=== PATIENT | male | born 1980 | race Caucasian/White ===

== ENCOUNTER 2016-09-13 22:59 | Emergency (ER) | payer SELFPAY ==
[2016-09-13 23:45] LABS: HEMATOCRIT 29.5 % (39.0-49.0); HEMOGLOBIN 11.2 gm/dL (13.2-17.3); MEAN PLATELET VOLUME 7.2 fl; PLATELET COUNT 147 Th/cmm (150-400); RED BLOOD COUNT 2.95 Mil/cmm (4.30-5.70); RED CELL DISTRIBUTION WIDTH 14.7 % (11.5-20.0)
--- NOTE | 2016-09-13 23:51 | ED Physician Chart ---
Chief Complaint/HPI - Patient Information Date Seen:: 09/13/16 Time Seen:: 23:26 Chief Complaint:: left sided body pain History of Present Illness:: THIS IS A 36 YO MALE BIB EMS STATING THAT HE HAD A FALL TONIGHT WHILE WALKING WITH [employer]ES. HE DENIES LOC AND DENIES USING DRUG OR ALCOHOL. HE IS ALSO CONCERN ABOUT THE MULTIPLE ABRASIONS OVER THE KNEES AND LOWER LEGS. HE STATES THAT HE IS HOMELESS. Vitals:: Vital Signs - 8 hr 09/13/16 23:05 Temp 98.1 F HR 95 RR 19 BP 109/75 O2 Sat % 99 Historian:: Patient, EMS Review:: Nurse's Note Reviewed Review of Systems - Review of Systems General/Constitutional: No fever, No chills, No weight loss, No weakness, No diaphoresis, No edema, No loss of appetite Skin: Skin lesions, No rash, No bruising Head: No headache, No light-headedness Eyes: No loss of vision, No pain, No diplopia ENT: No earache, No nasal drainage, No sore throat, No tinnitus Neck: No neck pain, No swelling, No thyromegaly, No stiffness, No mass noted Cardio Vascular: No chest pain, No palpitations, No PND, No orthopnea, No edema Pulmonary: No SOB, No cough, No sputum, No wheezing GI: No nausea, No vomiting, No diarrhea, No pain, No melena, No hematochezia, No constipation, No hematemesis G/U: No dysuria, No frequency, No hematuria Musculoskeletal: No bone or joint pain, No back pain, No muscle pain Endocrine: No polyuria, No polydipsia Psychiatric: No prior psych history, No depression, No anxiety, No suicidal ideation Hematopoietic: No bruising, No lymphadenopathy Allergic/Immuno: No urticaria, No angioedema Neurological: No syncope, No focal symptoms, No weakness, No paresthesia, No headache, No seizure, No dizziness, No confusion, No vertigo Past Medical History - Past Medical History Obtainable: Yes Past Medical History: HTN Family History: None Social History: Smoker, Alcohol, Illicit Drug Use Family Medical History - Family Member Mother History Unknown: Yes Physical Exam - Physical Examination General/Constitutional: Awake, Well-developed, well-nourished, Alert, No distress, GCS 15, Non-toxic appearing, Ambulatory Other Gen/Cons comments:: LOOKS LETHARGIC Head: Atraumatic Eyes: Lids, conjuctiva normal, PERRL, EOMI Skin: Nl inspection, No rash, No skin lesions, No ecchymosis, Well hydrated, No lymphadenopathy ENMT: External ears, nose nl, Nasal exam nl, Lips, teeth, gums nl Neck: Nontender, Full ROM w/o pain, No JVD, No nuchal rigidity, No bruit, No mass, No stridor Respiratory: Nl effort/Exclusion, Clear to Auscultation, No Wheeze/Rhonchi/Rales Cardio Vascular: RRR, No murmur, gallop, rubs, NL S1 S2 GI: No tenderness/rebounding/guarding, No organomegaly, No hernia, Normal BS's, Nondistended, No mass/bruits, No McBurney tenderness : No CVA tenderness Extremities: No tenderness or effusion, Full ROM, normal strength in all extremities, No edema, Normal digits & nails Neuro/Psych: Alert/oriented, DTR's symmetric, Normal sensory exam, Normal motor strength, Judgement/insight normal, Mood normal, Normal gait, No focal deficits Misc: normal gait, Normal back, No paraspinal tenderness Labs/Radiology/EKG Results - Lab Results Results: Laboratory Results - last 24 hr 09/13/16 09/13/16 09/13/16 23:36 23:36 23:36 WBC 5.0 RBC 2.95 L Hgb 11.2 L Hct 29.5 L MCV 100.0 H MCH 38.0 H MCHC Differential 38.0 H RDW 14.7 Plt Count 147 L MPV 7.2 Neutrophils (Manual) 56 Lymphocytes 42 Monocytes 2 Platelet Estimate ADEQUATE Platelet Morphology NORMAL Polychromasia 1+ Anisocytosis 1+ RBC Morph Micro Appear ABNORMAL Sodium 129 L Potassium 3.2 L Chloride 97 L Carbon Dioxide 26.4 Anion Gap 8.8 BUN 16 Creatinine 1.2 Est GFR ( Amer) > 60.0 Est GFR (Non-Af Amer) > 60.0 BUN/Creatinine Ratio 13.3 Glucose 109 H Calcium 8.9 Total Bilirubin 3.1 H AST 130 H ALT 69 H Alkaline Phosphatase 292 H Troponin I 0.01 Total Protein 6.3 Albumin 3.4 L Globulin 2.9 Albumin/Globulin Ratio 1.2 Urine Source Urine Color Urine Clarity Urine pH Ur Specific [place] Urine Protein Urine Glucose (UA) Urine Ketones Urine Blood Urine Nitrate Urine Bilirubin Urine Urobilinogen Ur Leukocyte Esterase Urine RBC Urine WBC Ur Epithelial Cells Urine Bacteria Urine Opiates Screen Urine Methadone Screen Ur Barbiturates Screen Ur Tricyclics Screen Ur Phencyclidine Scrn Amphetamines Screen U Methamphetamines Scrn U Benzodiazepines Scrn U Cocaine Metab Screen U Cannabinoids Screen Ethyl Alcohol 09/13/16 09/13/16 09/13/16 23:36 23:45 23:45 WBC RBC Hgb Hct MCV MCH MCHC Differential RDW Plt Count MPV Neutrophils (Manual) Lymphocytes Monocytes Platelet Estimate Platelet Morphology Polychromasia Anisocytosis RBC Morph Micro Appear Sodium Potassium Chloride Carbon Dioxide Anion Gap BUN Creatinine Est GFR ( Amer) Est GFR (Non-Af Amer) BUN/Creatinine Ratio Glucose Calcium Total Bilirubin AST ALT Alkaline Phosphatase Troponin I Total Protein Albumin Globulin Albumin/Globulin Ratio Urine Source CLEAN C Urine Color YELLOW Urine Clarity CLEAR Urine pH 6.0 Ur Specific [place] 1.015 Urine Protein NEGATIVE Urine Glucose (UA) NEGATIVE Urine Ketones NEGATIVE Urine Blood SMALL H Urine Nitrate NEGATIVE Urine Bilirubin NEGATIVE Urine Urobilinogen 1.0 Ur Leukocyte Esterase NEGATIVE Urine RBC 2-5 H Urine WBC NONE SEEN Ur Epithelial Cells NONE SEEN Urine Bacteria NONE SEEN Urine Opiates Screen POSITIVE H Urine Methadone Screen NEGATIVE Ur Barbiturates Screen NEGATIVE Ur Tricyclics Screen NEGATIVE Ur Phencyclidine Scrn NEGATIVE Amphetamines Screen NEGATIVE U Methamphetamines Scrn NEGATIVE U Benzodiazepines Scrn POSITIVE H U Cocaine Metab Screen NEGATIVE U Cannabinoids Screen NEGATIVE Ethyl Alcohol 257 H ED Septic Shock - . Is Septic Shock (SBP<90, OR Lactate>4 mmol\L) present?: No - <6hrs of presentation: Vital Signs: Vital Signs - 8 hr 09/13/16 23:05 Temp 98.1 F HR 95 RR 19 BP 109/75 O2 Sat % 99 Reassessment (Disposition) - Reassessment Reassessment Condition:: Improved - Diagnosis Diagnosis:: CONTUSION OF THE LEFT SIDE OF THE BODY DRUG ABUSE ALCOHOL ABUSE - Aftercare/Follow up Instructions Aftercare/Follow-Up Instructions:: Counseled pt regarding lab results/diagnosis & need follow up, Refer to Discharge Instructions, Counseled pt & family regarding lab results/diagnosis & need follow up - Patient Disposition Discharge/Transfer:: Home Condition at Disposition:: Improved ED Discharge Plan - Patient Disposition Admit/Discharge/Transfer: PT DISCHARGED HOME Condition at Disposition: Improved Instructions: Alcohol Intoxication, [id number], Contusion, [id number], Substance Abuse-Brief Additional Instructions: FOLLOW UP WITH YOUR REGULAR DOCTOR OR AT YOUR LOCAL MEDICAL CLINIC IF NOT FEELING BETTER. STOP DRINKING ALCOHOL.
[2016-09-14] LABS: ANION GAP 8.8 (7.0-16.0); BUN - UREA NITROGEN 16 mg/dL (7-25); BUN/CREATININE RATIO 13.3; CALCIUM SERUM 8.9 mg/dL (8.6-10.3); CARBON DIOXIDE 26.4 mEq/L (21.0-31.0); CHLORIDE 97 mEq/L (98-107); CREATININE - SERUM 1.2 mg/dL (0.7-1.3); GLUCOSE 109 mg/dL (70-105); POTASSIUM SERUM 3.2 mEq/L (3.5-5.1); SODIUM SERUM 129 mEq/L (136-145)
[2016-09-14 00:01] LABS: ALB/GLOB RATIO 1.2 (1.0-1.8); ALKALINE PHOSPHATASE 292 U/L (34-104); BILIRUBIN,TOTAL 3.1 mg/dL (0.3-1.0)
[2016-09-14 00:18] LABS: URINE BILIRUBIN NEGATIVE (NEGATIVE); URINE COLOR YELLOW; URINE GLUCOSE (UA) NEGATIVE (NEGATIVE); URINE KETONE NEGATIVE (NEGATIVE)
[2016-09-14 00:19] LABS: URINE BACTERIA NONE SEEN /hpf (NONE SEEN); URINE BLOOD SMALL (NEGATIVE); URINE EPITHELIAL CELLS NONE SEEN /lpf (FEW); URINE PROTEIN NEGATIVE (NEGATIVE); URINE WBC NONE SEEN /hpf (0-5)
[2016-09-14 00:27] LABS: AMPHETAMINE URINE NEGATIVE (NEGATIVE); BARBITURATES URINE NEGATIVE (NEGATIVE); METHADONE URINE NEGATIVE (NEGATIVE)
[2016-09-14 00:40] LABS: ANISOCYTOSIS 1+; NEUTROPHILS 56 % (40-80); PLATELET ESTIMATE ADEQUATE (NORMAL); PLATELET MORPHOLOGY NORMAL (NORMAL); POLYCHROMASIA 1+; TOTAL CELLS COUNTED 100
[2016-09-14 01:00] LABS: SGOT 130 U/L (13-39)
[2016-09-14 01:01] LABS: SGPT/ALT 69 U/L (7-52)
== END 2016-09-14 07:15 | disposition home or self-care (01) ==
LOC: ER 22:59 → EDBD 22:59 → ER 09-14 07:15
DX: T14.8 Other injury of unspecified body region (principal); I10 Essential (primary) hypertension; F17.200 Nicotine dependence, unspecified, uncomplicated; F10.10 Alcohol abuse, uncomplicated; F19.10 Other psychoactive substance abuse, uncomplicated; Z59.0 Homelessness; X58.XXXA Exposure to other specified factors, initial encounter; Y93.89 Activity, other specified; Y92.89 Other specified places as the place of occurrence of the external cause; Y99.8 Other external cause status
CPT/HCPCS: 99284; 96372 ×2; 84484; 36415; 80300; 85007; 85027; 85610; 81001; 80320; 80053; 87040 ×2; J1885; J2060; 81003-TC; 85025-TC; Z7502

== ENCOUNTER 2017-11-30 23:16 | Emergency (ER) | payer MEDICAID ==
[2017-11-30] MEDS ORDERED: Sodium Chloride 0.9% 1,000 ML IV ONE (23:33)
--- NOTE | 2017-11-30 23:39 | ED Physician Chart ---
ED Chief Complaint/HPI - Patient Information Date Seen:: 11/30/17 Time Seen:: 23:30 Chief Complaint:: abdominal pain History of Present Illness:: Patient has had upper abdominal pain for 2 years radiating to his back and distally down the anterior thighs to the knees. Patient has vomited many times and also has soft stools recently. Patient requested Dilaudid for his abdominal pain and and when I told him no he requested morphine. I told him I would not give him any morphine either before lab tests returned. Patient had a bandage on his right second toe and from what little I could see it looked like his toe was infected. I tried to remove the bandage gently but he accused me of causing him a lot of pain so I desisted in my attempt to remove the bandage. Allergies:: Allergies Allergy/AdvReac Type Severity Reaction Status Date / Time No Known Allergies Allergy Verified 09/13/16 23:58 Vitals:: Vital Signs - 8 hr 11/30/17 23:26 Temp 98.4 F HR 105 RR 19 BP 117/71 O2 Sat % 96 Historian:: Patient, EMS Review:: Nurse's Note Reviewed ED Review of Systems - Review of Systems General/Constitutional: No fever, No chills, No weight loss, No weakness, No diaphoresis, No edema, No loss of appetite Skin: No skin lesions, No rash, No bruising Head: No headache, No light-headedness Eyes: No loss of vision, No pain, No diplopia ENT: No earache, No nasal drainage, No sore throat, No tinnitus Neck: No neck pain, No swelling, No thyromegaly, No stiffness, No mass noted Cardio Vascular: No chest pain, No palpitations, No PND, No orthopnea, No edema Pulmonary: No SOB, No cough, No sputum, No wheezing GI: Nausea, Vomiting, Diarrhea, Pain, No melena, No hematochezia, No constipation, No hematemesis G/U: No dysuria, No frequency, No hematuria Musculoskeletal: No bone or joint pain, No back pain, No muscle pain Endocrine: No polyuria, No polydipsia Psychiatric: No prior psych history, No depression, No anxiety, No suicidal ideation Hematopoietic: No bruising, No lymphadenopathy Allergic/Immuno: No urticaria, No angioedema Neurological: No syncope, No focal symptoms, No weakness, No paresthesia, No headache, No seizure, No dizziness, No confusion, No vertigo ED Past Medical History - Past Medical History Past Medical History: Other (chronic back pain and pancreatitis) Family History: None Social History: Smoker, Alcohol (patient smokes one half package of cigarettes a day and drinks 1/2-1 pint of vodka per day) Surgical History: Cholecystectomy, Hernia, other (for back pain) Psychiatricy History: None Medication: Reviewed Family Medical History - Family Member Mother History Unknown: Yes ED Physical Exam - Physical Examination General/Constitutional: Awake, Well-developed, well-nourished, Alert, No distress, GCS 15, Non-toxic appearing, Ambulatory Head: Atraumatic Eyes: Lids, conjuctiva normal, PERRL, EOMI Skin: Nl inspection, No rash, No skin lesions, No ecchymosis, Well hydrated, No lymphadenopathy ENMT: External ears, nose nl, Nasal exam nl, Lips, teeth, gums nl Neck: Nontender, Full ROM w/o pain, No JVD, No nuchal rigidity, No bruit, No mass, No stridor Respiratory: Nl effort/Exclusion, Clear to Auscultation, No Wheeze/Rhonchi/Rales Cardio Vascular: RRR, No murmur, gallop, rubs, NL S1 S2 GI: No tenderness/rebounding/guarding, No organomegaly, No hernia, Normal BS's, Nondistended, No mass/bruits, No McBurney tenderness : No CVA tenderness Other Extremities comments:: See history for possible infection of right second toe Neuro/Psych: Alert/oriented, Judgement/insight normal, No focal deficits Misc: Normal back, No paraspinal tenderness ED Assessment - Assessment General Assessment: Patient eloped from the emergency department before lab tests could be drawn or he could receive IV fluids and Zofran IV for nausea. ED Septic Shock - . Is Septic Shock (SBP<90, OR Lactate>4 mmol\L) present?: No - <6hrs of presentation: Vital Signs: Vital Signs - 8 hr 11/30/17 23:26 Temp 98.4 F HR 105 RR 19 BP 117/71 O2 Sat % 96 ED Reassessment (Disposition) - Reassessment Reassessment Condition:: Unchanged - Diagnosis Diagnosis:: Abdominal pain; alcohol abuse; nicotine use - Patient Disposition Discharge/Transfer:: Elope/AWOL Condition at Disposition:: Stable, Unchanged
== END 2017-11-30 23:35 | disposition left against medical advice (07) ==
LOC: ER 23:16
DX: F10.10 Alcohol abuse, uncomplicated (principal); F17.210 Nicotine dependence, cigarettes, uncomplicated; Z90.49 Acquired absence of other specified parts of digestive tract
CPT/HCPCS: Z7502

== ENCOUNTER 2017-12-09 11:16 | Inpatient (IN) | payer MEDICAID ==
[2017-12-09] MEDS ORDERED: Sodium Chloride 0.9% 1,000 ML IV ONE (11:33)
--- NOTE | 2017-12-09 11:38 | ED Physician Chart ---
ED Chief Complaint/HPI - Patient Information Date Seen:: 12/09/17 Time Seen:: 11:25 Chief Complaint:: Abdominal Pain History of Present Illness:: onset x 12 hours of intermittent, diffuse, crampy Abdominal Pain, N/V/D, 10; pt denies trauma, H/As, S/T, neck pain, cough, C/P, SOB, A/C, fever, chills, bleeding, or urinary s/s Allergies:: Allergies Allergy/AdvReac Type Severity Reaction Status Date / Time No Known Allergies Allergy Verified 09/13/16 23:58 Vitals:: Vital Signs - 8 hr 12/09/17 11:25 Temp 98.1 F HR 103 RR 16 BP 108/69 O2 Sat % 95 Historian:: Patient Review:: Nurse's Note Reviewed ED Review of Systems - Review of Systems General/Constitutional: No fever, No chills, No weight loss, No weakness, No diaphoresis, No edema, No loss of appetite Skin: No skin lesions, No rash, No bruising Head: No headache, No light-headedness Eyes: No loss of vision, No pain, No diplopia ENT: No earache, No nasal drainage, No sore throat, No tinnitus Neck: No neck pain, No swelling, No thyromegaly, No stiffness, No mass noted Cardio Vascular: No chest pain, No palpitations, No PND, No orthopnea, No edema Pulmonary: No SOB, No cough, No sputum, No wheezing GI: Nausea, Vomiting, Diarrhea, Pain, No melena, No hematochezia, No constipation, No hematemesis G/U: No dysuria, No frequency, No hematuria, No nacturia Musculoskeletal: No bone or joint pain, No back pain, No muscle pain Endocrine: No polyuria, No polydipsia Psychiatric: No prior psych history, No depression, No anxiety, No suicidal ideation, No homicidal ideation, No auditory hallucination, No visual hallucination Hematopoietic: No bruising, No lymphadenopathy Allergic/Immuno: No urticaria, No angioedema Neurological: No syncope, No focal symptoms, No weakness, No paresthesia, No headache, No seizure, No dizziness, No confusion, No vertigo ED Past Medical History - Past Medical History Obtainable: Yes Past Medical History: No significant medical hx Family History: HTN Social History: Smoker, Alcohol, No Drug Use, Single Surgical History: Cholecystectomy Psychiatricy History: None Medication: Reviewed Family Medical History - Family Member Mother History Unknown: Yes ED Physical Exam - Physical Examination General/Constitutional: Awake, Well-developed, well-nourished, Alert, No distress, GCS 15, Non-toxic appearing, Ambulatory Head: Atraumatic Eyes: Lids, conjuctiva normal, PERRL, EOMI Skin: Nl inspection, No rash, No skin lesions, No ecchymosis, Well hydrated, No lymphadenopathy ENMT: External ears, nose nl, TM canals nl, Nasal exam nl, Lips, teeth, gums nl , Oropharynx nl, Tonsils nl Neck: Nontender, Full ROM w/o pain, No JVD, No nuchal rigidity, No bruit, No mass, No stridor Respiratory: Nl effort/Exclusion, Clear to Auscultation, No Wheeze/Rhonchi/Rales Cardio Vascular: RRR, No murmur, gallop, rubs, NL S1 S2, Carotid/Femoral/Distal pulses equal bilaterally GI: No tenderness/rebounding/guarding, No organomegaly, No hernia, Normal BS's, Nondistended, No mass/bruits, No McBurney tenderness : No CVA tenderness Extremities: No tenderness or effusion, Full ROM, normal strength in all extremities, No edema, Normal digits & nails Neuro/Psych: Alert/oriented, DTR's symmetric, Normal sensory exam, Normal motor strength, Judgement/insight normal, Mood normal, Normal gait, No focal deficits Misc: Normal back, No paraspinal tenderness ED Labs/Radiology/EKG Results - Lab Results Comments:: ETOH: 278; WBC: 4.3; Glucose: 175; LFTs: Elevated - Radiology Results Comments:: NAD - EKG Interpretations EKG Time:: 11:55 Rate & Rhythm: 97; NSR Comments:: non-specific st-t changes ED Septic Shock - . Is Septic Shock (SBP<90, OR Lactate>4 mmol\L) present?: No - <6hrs of presentation: Vital Signs: Vital Signs - 8 hr 12/09/17 11:25 Temp 98.1 F HR 103 RR 16 BP 108/69 O2 Sat % 95 ED Reassessment (Disposition) - Reassessment Reassessment Condition:: Improved - Diagnosis Diagnosis:: Dx: Abominal Pain, N/V/D; AGE; Alcohol Intoxication; Gastroenteritis; Hyperglycemia; Leukopenia; Elevated LFTs - Aftercare/Follow up Instructions Aftercare/Follow-Up Instructions:: Counseled pt regarding lab results/diagnosis & need follow up, Counseled pt & family regarding lab results/diagnosis & need follow up - Patient Disposition Discharge/Transfer:: Acute Care w/in this hosp Accepting Physician:: Dr. Richter Time Called:: 1300 Time Responded:: 13:00 Admitted to:: Med/Surg Spoke to:: Dr. Richter Admitting Medical Physician:: Dr. Richter Condition at Disposition:: Stable, Improved
[2017-12-09 12:07] LABS: % EOSINOPHILS 2.8 % (0.0-5.0); % LYMPHOCYTES 53.8 % (20.0-50.0); % NEUTROPHILS 33.4 % (40.0-80.0); BASOPHILE ABSOLUTE 0.1 Th/cumm (0-0.2); EOSINOPHILE ABSOLUTE 0.1 Th/cmm (0.1-0.4); HEMATOCRIT 38.6 % (41.0-60); HEMOGLOBIN 13.2 gm/dL (12-16); LYMPHOCYTE ABSOLUTE 2.4 Th/cmm (1.5-3.0); MEAN CELL VOLUME 87.8 fl (80-99); MEAN CORPUSCULAR HGB CONC 34.2 pg (28.0-36.0); MEAN PLATELET VOLUME 7.1 fl; MONOCYTE ABSOLUTE 0.3 Th/cmm (0.3-1.0); NEUTROPHILE ABSOLUTE 1.4 Th/cmm (1.8-8.0); PLATELET COUNT 266 Th/cmm (150-400); RED BLOOD COUNT 4.39 Mil/cmm (4.30-5.70); RED CELL DISTRIBUTION WIDTH 17.9 % (11.5-20.0); WHITE BLOOD COUNT 4.3 Th/cmm (4.8-10.8)
[2017-12-09 12:09] LABS: INR 0.94 (0.5-1.4); PROTHROMBIN TIME (TEST) 9.8 SECONDS (9.5-11.5)
[2017-12-09 12:13] LABS: ALB/GLOB RATIO 1.3 (1.0-1.8); ALBUMIN 3.9 gm/dL (4.2-5.5); ALKALINE PHOSPHATASE 160 U/L (34-104); ANION GAP 15.5 (7.0-16.0); BILIRUBIN,TOTAL 0.3 mg/dL (0.3-1.0); BUN - UREA NITROGEN 9 mg/dL (7-25); CALCIUM SERUM 8.7 mg/dL (8.6-10.3); CARBON DIOXIDE 24.8 mEq/L (21.0-31.0); CHLORIDE 102 mEq/L (98-107); CHOLESTEROL 152 mg/dL (<200); CREATININE - SERUM 0.7 mg/dL (0.7-1.3); CREATININE KINASE 291 U/L (30-223); GFR AFRICAN-AMERICAN > 60.0 ml/min (>90); GFR NON AFRICAN-AMERICAN > 60.0 ml/min; GLUCOSE 175 mg/dL (70-105); HDL -HIGH DENSITY LIPOPROTEIN 47 mg/dL (23-92); POTASSIUM SERUM 4.3 mEq/L (3.5-5.1); SGOT 73 U/L (13-39); SGPT/ALT 30 U/L (7-52); SODIUM SERUM 138 mEq/L (136-145); TRIGLYCERIDES 229 mg/dL (<150)
[2017-12-09 12:14] LABS: AMYLASE SERUM 48 U/L (29-103); LIPASE 24 U/L (11-82)
[2017-12-09] MEDS ORDERED: Multivitamin Inj 10 ML, Thiamine HCL 100 MG, Magnesium Sulfate 2 GM, Folic Acid 1 MG in... IV ONE (14:00)
--- NOTE | 2017-12-09 15:01 | Diagnostic Imaging Report ---
CT scan abdomen and pelvis without intravenous contrast HISTORY: Pain Total DLP equals 405 CTDI equals 7.4 Axial sections were obtained from the xiphoid process down to the pubic symphysis. Exam is compared with prior study November 13, 2017. The liver is enlarged. There is a slight decrease in overall hepatic parenchymal density suggesting fatty infiltration. The finding should be correlated with liver function tests. The spleen appears normal. Numerous calcifications seen throughout the pancreas consistent with changes of chronic pancreatitis. No significant change from the prior examination. Surgical clips are noted in the higinio hepatis region consistent with prior cholecystectomy. No focal renal lesions. No hydronephrosis. No abnormality seen within the region of the appendix. The exam of the pelvis demonstrates preservation of normal fat planes. No abnormal soft tissue masses or abnormal fluid collections. Colonic diverticula are seen. There appears to be mild enlargement of the prostate gland. IMPRESSION: 1. No acute abnormalities 2. Findings consistent with chronic pancreatitis. Little change compared to a prior study of November 13, 2017. 3. Status post cholecystectomy 4. Diverticulosis 5. Hepatomegaly along with changes suggesting fatty infiltration. The findings should be correlated with liver function tests.
[2017-12-09 16:19] LABS: URINE BILIRUBIN NEGATIVE (NEGATIVE); URINE BLOOD NEGATIVE (NEGATIVE); URINE GLUCOSE (UA) NEGATIVE (NEGATIVE); URINE KETONE NEGATIVE (NEGATIVE); URINE LEUKOCYTE ESTERASE NEGATIVE (NEGATIVE); URINE MICROSCOPIC INDICATED? YES; URINE NITRATE NEGATIVE (NEGATIVE); URINE PH 6.5 (4.6 - 8.0); URINE PROTEIN NEGATIVE (NEGATIVE); URINE SOURCE CLEAN C; URINE UROBILINOGEN 0.2 E.U./dL (0.2 - 1.0)
[2017-12-09 16:29] LABS: URINE CLARITY CLEAR (CLEAR); URINE COLOR YELLOW
[2017-12-09 16:33] LABS: URINE BACTERIA NONE SEEN /hpf (NONE SEEN); URINE EPITHELIAL CELLS NONE SEEN /lpf (FEW); URINE RBC NONE SEEN /hpf (0-5); URINE WBC NONE SEEN /hpf (0-5)
[2017-12-09 16:51] LABS: AMPHETAMINE URINE NEGATIVE (NEGATIVE); BARBITURATES URINE NEGATIVE (NEGATIVE); BENZODIAZEPINES QUAL URINE POSITIVE (NEGATIVE); CANNABINOID THC POSITIVE (NEGATIVE); COCAINE METABOLITE QUAL URINE NEGATIVE (NEGATIVE); METHADONE URINE NEGATIVE (NEGATIVE); METHAMPHETAMINES QUAL URINE NEGATIVE (NEGATIVE); OPIATES (MORPHINE) QUAL. URINE POSITIVE (NEGATIVE); PHENCYCLIDINE (PCP) URINE NEGATIVE (NEGATIVE); TRICYCLICS (TCA) QUAL. URINE NEGATIVE (NEGATIVE)
[2017-12-09] MEDS: Morphine Sulfate 4 mg/mL 1mL Syr IV PRN ×2 (16:57→20:43)
--- NOTE | 2017-12-09 22:20 | History & Physical ---
ADMIT DATE: 12/09/2017 CHIEF COMPLAINT: Abdominal pain. HISTORY OF PRESENT ILLNESS: The patient is a 37-year-old male with long history of ethanol dependency and drug dependency, presented to the Emergency Room for abdominal pain. Initial workup significant for higher level of alcohol. Otherwise, negative for pancreatitis. CT of the abdomen negative. Admitted to medical floor, started on IV banana bag, clear liquid diet, pain medication. No fever, no chills, no nausea, no vomiting, no diarrhea. PAST MEDICAL HISTORY: Significant for ethanol dependency and opiate dependency. PAST SURGICAL HISTORY: No recent surgery. ALLERGIES: None. MEDICATIONS: Follow admission reconciliation. SOCIAL HISTORY: Chronic alcoholic, using opiate, smokes marijuana. FAMILY HISTORY: Noncontributory. REVIEW OF SYSTEMS: RENAL SYSTEM: No history of chronic renal disorder. CARDIOVASCULAR SYSTEM: No coronary artery disease. ENDOCRINE SYSTEM: No diabetes or thyroid problem. GASTROINTESTINAL SYSTEM: No upper or lower gastrointestinal bleed. NEUROLOGICAL SYSTEM: No seizure disorder. MUSCULOSKELETAL SYSTEM: No muscular dystrophy. HEMATOLOGIC SYSTEM: No bleeding tendencies. RESPIRATORY SYSTEM: No asthma. GENITOURINARY: No dysuria or hematuria. PHYSICAL EXAMINATION: GENERAL: He is awake, alert, oriented, in no distress. VITAL SIGNS: Temperature is 98.2, heart rate 84, and blood pressure 106/80. HEENT: Normocephalic. Pupils reactive to light and accommodation. Sclerae clear. NECK: Supple. Negative for lymphadenopathy, JVD, or bruit. CHEST: Entry of air bilateral normal. No rhonchi or wheezing. HEART: S1, S2 normal. No gallop rhythm. ABDOMEN: Soft, mild tenderness, rebound negative. Bowel sounds positive. LABORATORY DATA: White blood cell 4.3, hemoglobin 13.2, hematocrit 38.6, and platelet 266. Sodium 138, potassium 4.3, BUN 9, creatinine 0.7. Troponin less than 0.01. Amylase 48, lipase 24. Urine toxicology positive for opiate and benzodiazepine, cannabinoid, and ethanol. ASSESSMENT: 1. Acute gastritis. 2. Polysubstance dependency. PLAN: The patient admitted to the hospital under Dr. Richter's service, started on banana bag, clear liquid diet. The patient will resume his medication. JOB# [id number]
[2017-12-10] MEDS: Hydrocodone/APAP 5mg/325mg Tab PO PRN ×3 (03:47→15:18)
[2017-12-10] MEDS ORDERED: Multivitamin Inj 10 ML, Thiamine HCL 100 MG, Magnesium Sulfate 2 GM, Folic Acid 1 MG in... IV SCH (10:00)
== END 2017-12-10 18:23 | disposition home or self-care (01) | DRG 241 ==
LOC: ER 11:16 → MSI 15:32
PROVIDERS: ADMIT Family Medicine; ATTEND Family Medicine
DX: K29.00 Acute gastritis without bleeding (principal); F11.20 Opioid dependence, uncomplicated; K52.9 Noninfective gastroenteritis and colitis, unspecified; F13.20 Sedative, hypnotic or anxiolytic dependence, uncomplicated; Y90.8 Blood alcohol level of 240 mg/100 ml or more; F10.129 Alcohol abuse with intoxication, unspecified; R73.9 Hyperglycemia, unspecified; D72.819 Decreased white blood cell count, unspecified; F17.200 Nicotine dependence, unspecified, uncomplicated; F19.20 Other psychoactive substance dependence, uncomplicated; Z90.49 Acquired absence of other specified parts of digestive tract; Z82.49 Family history of ischemic heart disease and other diseases of the circulatory system
CPT/HCPCS: 36415-UA; 80053-TC; 80061-TC; 80307; 80320-TC; 81001-TC; 82150-TC; 82550-TC; 82553; 82948-90; 83690-TC; 83880-TC; 84484-TC; 85025-TC; 85610-TC; 93005; 94760; 96375; C9113; J1885; J2060; J2405; J3411; J3475; J7030; X6598; Z7610

== ENCOUNTER 2018-03-16 02:52 | Emergency (ER) | payer MEDICAID ==
[2018-03-16] MEDS ORDERED: Sodium Chloride 0.9% 1,000 ML IV ONE (03:57)
--- NOTE | 2018-03-16 04:04 | ED Physician Chart ---
ED Chief Complaint/HPI - Patient Information Date Seen:: 03/16/18 Time Seen:: 03:30 Chief Complaint:: abd pain History of Present Illness:: 38 yr [facility] and keeps saying i do not know what is wrong i just do not feel well and has lt big toe ulcer and very dirty feet and soles and scars and multiple tatoos Allergies:: Allergies Allergy/AdvReac Type Severity Reaction Status Date / Time No Known Allergies Allergy Verified 03/16/18 02:55 Vitals:: Vital Signs - 8 hr 03/16/18 02:55 Temp 98.1 F HR 86 RR 20 BP 130/94 O2 Sat % 98 ED Review of Systems - Review of Systems General/Constitutional: No fever, No chills Skin: Skin lesions (ulcer lt big toe) Head: No headache Eyes: No loss of vision ENT: No earache Neck: No neck pain Cardio Vascular: No chest pain Pulmonary: No SOB GI: Nausea G/U: No dysuria Musculoskeletal: Bone or joint pain Endocrine: No polyuria Psychiatric: No prior psych history Hematopoietic: No bruising Allergic/Immuno: No urticaria Neurological: No syncope Family Medical History - Family Member Mother History Unknown: Yes ED Septic Shock - . Is Septic Shock (SBP<90, OR Lactate>4 mmol\L) present?: No - <6hrs of presentation: Vital Signs: Vital Signs - 8 hr 03/16/18 02:55 Temp 98.1 F HR 86 RR 20 BP 130/94 O2 Sat % 98 ED Reassessment (Disposition) - Reassessment Reassessment Condition:: Improved - Diagnosis Diagnosis:: abd pain anxiety chronic pain - Aftercare/Follow up Instructions Aftercare/Follow-Up Instructions:: Counseled pt regarding lab results/diagnosis & need follow up - Patient Disposition Discharge/Transfer:: Home
[2018-03-16] MEDS ORDERED: Piperacillin Sodium/Tazobact 3.375 gm Vial IV ONE (04:40)
[2018-03-16 04:59] LABS: HEMATOCRIT 41.1 % (41.0-60); HEMOGLOBIN 13.9 gm/dL (12-16); MEAN CELL VOLUME 94.2 fl (80-99); MEAN CORPUSCULAR HEMOGLOBIN 31.7 pg (26.0-30.0); MEAN CORPUSCULAR HGB CONC 33.7 pg (28.0-36.0); MEAN PLATELET VOLUME 6.8 fl; PLATELET COUNT 134 Th/cmm (150-400); RED BLOOD COUNT 4.37 Mil/cmm (4.30-5.70); RED CELL DISTRIBUTION WIDTH 23.2 % (11.5-20.0); WHITE BLOOD COUNT 4.3 Th/cmm (4.8-10.8)
[2018-03-16] MEDS ORDERED: Morphine Sulfate 2 mg/mL 1mL Syr IV STA (05:44)
[2018-03-16] MEDS ORDERED: Morphine Sulfate 2 mg/mL 1mL Syr ONE (05:51)
[2018-03-16 06:46] LABS: ALB/GLOB RATIO 1.5 (1.0-1.8); ALBUMIN 4.4 gm/dL (4.2-5.5); ALKALINE PHOSPHATASE 248 U/L (34-104); BILIRUBIN,TOTAL 1.8 mg/dL (0.3-1.0); BUN - UREA NITROGEN 13 mg/dL (7-25); CALCIUM SERUM 9.2 mg/dL (8.6-10.3); CARBON DIOXIDE 21.3 mEq/L (21.0-31.0); CHLORIDE 99 mEq/L (98-107); CREATININE - SERUM 0.9 mg/dL (0.7-1.3); GFR AFRICAN-AMERICAN > 60.0 ml/min (>90); GFR NON AFRICAN-AMERICAN > 60.0 ml/min; GLUCOSE 84 mg/dL (70-105); POTASSIUM SERUM 3.3 mEq/L (3.5-5.1); SGOT 280 U/L (13-39); SGPT/ALT 62 U/L (7-52); SODIUM SERUM 139 mEq/L (136-145); TOTAL PROTEIN,SERUM 7.3 gm/dL (6.0-8.3)
[2018-03-16] MEDS ORDERED: Potassium Chloride 20 mEq ER Tab PO ONE ×2 (07:41→07:57)
[2018-03-16 07:53] LABS: ANISOCYTOSIS 2+; BAND NEUTROPHILE 1 % (0-10); BASOPHIL 0 % (0-3); EOSINOPHIL 0 % (0-5); LYMPHOCYTE 40 % (20-50); MONOCYTE 7 % (2-10); NEUTROPHILS 52 % (40-80)
--- NOTE | 2018-03-16 08:42 | Diagnostic Imaging Report ---
KUB abdominal film HISTORY: Pain The pubic region is obscured by overlying [place] shield. There is a nonspecific gas pattern of nondilated bowel. No free peritoneal air. Surgical clip seen within the right upper quadrant of the abdomen. Small calcifications project over the left upper abdomen. This may be related to rib cartilage. IMPRESSION: 1. Nonspecific bowel gas pattern with no acute radiographic abnormalities
--- NOTE | 2018-03-16 09:13 | Diagnostic Imaging Report ---
CT scan abdomen and pelvis without intravenous contrast HISTORY: Pain Total DLP equals 372 CTDI equals 7.1 Axial sections were obtained from the xiphoid process down to the pubic symphysis. Exam is compared with a prior study of December 09, 2017. The liver demonstrates a generalized decrease in overall hepatic parenchymal density consistent with fatty infiltration. The findings should be correlated with liver function tests. The spleen appears normal. Numerous calcification seen throughout the pancreas. Changes consistent with chronic pancreatitis. Surgical clips are seen within the higinio hepatis region consistent with prior cholecystectomy. No focal renal lesions. No hydronephrosis. The exam of the pelvis demonstrates preservation of normal fat planes. Mild enlargement of the prostate gland. No other abnormal masses or abnormal fluid collections. Colonic diverticula are seen. IMPRESSION: 1. No acute abnormalities 2. Numerous pancreatic calcifications consistent with chronic pancreatitis. No change from December 09, 2017. 3. Diverticulosis 4. Findings consistent with hepatic fatty infiltration. The changes should be correlated with liver function tests 5. Status post cholecystectomy
[2018-03-16 09:47] LABS: URINE SOURCE CLEAN C
[2018-03-16 09:52] LABS: URINE BILIRUBIN MODERATE (NEGATIVE); URINE BLOOD LARGE (NEGATIVE); URINE GLUCOSE (UA) NEGATIVE (NEGATIVE); URINE KETONE NEGATIVE (NEGATIVE); URINE LEUKOCYTE ESTERASE NEGATIVE (NEGATIVE); URINE MICROSCOPIC INDICATED? YES; URINE NITRATE NEGATIVE (NEGATIVE); URINE PROTEIN 30 mg/dL (NEGATIVE)
[2018-03-16 10:07] LABS: URINE COLOR ORANGE
[2018-03-16 10:10] LABS: URINE CLARITY HAZY (CLEAR)
[2018-03-16 10:11] LABS: URINE ICTOTEST NEGATIVE (NEGATIVE)
[2018-03-16 10:12] LABS: URINE RBC 25-50 /hpf (0-5); URINE WBC 0-2 /hpf (0-5)
[2018-03-16 10:13] LABS: URINE AMORPHOUS SEDIMENT FEW URATES (NONE SEEN); URINE BACTERIA NONE SEEN /hpf (NONE SEEN); URINE EPITHELIAL CELLS OCCASIONAL /lpf (FEW)
[2018-03-16 10:16] LABS: AMPHETAMINE URINE NEGATIVE (NEGATIVE); BARBITURATES URINE NEGATIVE (NEGATIVE); COCAINE METABOLITE QUAL URINE NEGATIVE (NEGATIVE); METHAMPHETAMINES QUAL URINE NEGATIVE (NEGATIVE); OPIATES (MORPHINE) QUAL. URINE POSITIVE (NEGATIVE); PHENCYCLIDINE (PCP) URINE NEGATIVE (NEGATIVE); TRICYCLICS (TCA) QUAL. URINE POSITIVE (NEGATIVE)
[2018-03-16 10:17] LABS: BENZODIAZEPINES QUAL URINE NEGATIVE (NEGATIVE); CANNABINOID THC POSITIVE (NEGATIVE); METHADONE URINE NEGATIVE (NEGATIVE)
== END 2018-03-16 10:55 | disposition home or self-care (01) ==
LOC: ER 02:52
DX: R10.9 Unspecified abdominal pain (principal); G89.29 Other chronic pain; F41.9 Anxiety disorder, unspecified; L97.529 Non-pressure chronic ulcer of other part of left foot with unspecified severity
CPT/HCPCS: 99285; 96365; 96375; 74018; 74176; 36415; 80307; 85007; 85025; 81001; 80053; 87040 ×2; J2270; J1885; J2405; J2543; 74000-TC

== ENCOUNTER 2018-04-05 18:13 | Emergency (ER) | payer MEDICAID ==
--- NOTE | 2018-04-05 19:05 | ED Physician Chart ---
ED Chief Complaint/HPI - Patient Information Allergies:: Allergies Allergy/AdvReac Type Severity Reaction Status Date / Time No Known Allergies Allergy Verified 03/16/18 02:55 Vitals:: Vital Signs - 8 hr 04/05/18 18:35 Temp 98.4 F HR 114 RR 17 BP 114/67 O2 Sat % 97 Family Medical History - Family Member Mother History Unknown: Yes ED Assessment - Assessment General Assessment: ran a CURES report on patient. All of the pharmacies are closed. I called 6 pharmacies. The nurse practitioner who regularly prescribes him narcotics and prescribed him 120 pills of [place] on 03/17/2018, was looked up on [employer]. The phone number is wrong. I then called a 24 hour [facility] that gave me the number for the prescribing practice. That number is [phone]. I called the above listed number and a Dr. Maza who is engineering documentation specialist for the prescribing practice. Apparently, that Dr. Maza will call us back. Assessment/Comments:: Sign out given to Dr. Pedroza at 7:00 p.m. ED Septic Shock - . Is Septic Shock (SBP<90, OR Lactate>4 mmol\L) present?: No - <6hrs of presentation: Vital Signs: Vital Signs - 8 hr 04/05/18 18:35 Temp 98.4 F HR 114 RR 17 BP 114/67 O2 Sat % 97 ED Reassessment (Disposition) - Diagnosis Diagnosis:: Narcotic abuse Intoxication Drug seeking personality
[2018-04-05 19:44] LABS: % BASOPHILS 2.1 % (0.0-2.0); % EOSINOPHILS 2.1 % (0.0-5.0); % LYMPHOCYTES 38.7 % (20.0-50.0); % MONOCYTES 7.8 % (2.0-10.0); % NEUTROPHILS 49.3 % (40.0-80.0); BASOPHILE ABSOLUTE 0.1 Th/cumm (0-0.2); EOSINOPHILE ABSOLUTE 0.1 Th/cmm (0.1-0.4); HEMATOCRIT 37.9 % (41.0-60); HEMOGLOBIN 12.9 gm/dL (12-16); LYMPHOCYTE ABSOLUTE 2.1 Th/cmm (1.5-3.0); MEAN CELL VOLUME 100.1 fl (80-99); MEAN CORPUSCULAR HEMOGLOBIN 34.2 pg (26.0-30.0); MEAN CORPUSCULAR HGB CONC 34.1 pg (28.0-36.0); MEAN PLATELET VOLUME 6.9 fl; MONOCYTE ABSOLUTE 0.4 Th/cmm (0.3-1.0); NEUTROPHILE ABSOLUTE 2.8 Th/cmm (1.8-8.0); PLATELET COUNT 231 Th/cmm (150-400); RED BLOOD COUNT 3.79 Mil/cmm (4.30-5.70); RED CELL DISTRIBUTION WIDTH 20.3 % (11.5-20.0); WHITE BLOOD COUNT 5.5 Th/cmm (4.8-10.8)
[2018-04-05 20:04] LABS: ALB/GLOB RATIO 1.4 (1.0-1.8); ALBUMIN 4.2 gm/dL (4.2-5.5); ALKALINE PHOSPHATASE 288 U/L (34-104); ANION GAP 15.6 (7.0-16.0); BILIRUBIN,TOTAL 0.6 mg/dL (0.3-1.0); BUN - UREA NITROGEN 9 mg/dL (7-25); CALCIUM SERUM 9.2 mg/dL (8.6-10.3); CARBON DIOXIDE 23.2 mEq/L (21.0-31.0); CHLORIDE 103 mEq/L (98-107); CREATININE - SERUM 0.9 mg/dL (0.7-1.3); GFR AFRICAN-AMERICAN > 60.0 ml/min (>90); GFR NON AFRICAN-AMERICAN > 60.0 ml/min; GLUCOSE 109 mg/dL (70-105); POTASSIUM SERUM 3.8 mEq/L (3.5-5.1); SGOT 79 U/L (13-39); SGPT/ALT 45 U/L (7-52); SODIUM SERUM 138 mEq/L (136-145); TOTAL PROTEIN,SERUM 7.3 gm/dL (6.0-8.3)
--- NOTE | 2018-04-05 20:26 | ED Physician Chart ---
ED Chief Complaint/HPI - Patient Information Date Seen:: 04/05/18 Time Seen:: 07:20 Chief Complaint:: chronic pain History of Present Illness:: 38 yr old male here for pain all over no nv diahea pt points to his belly pt been here befor and cures report by DR luis showed 125 tabs of norco on feb PT TAKING ALSO MS CONTIN AND OTHER DRUGS Allergies:: Allergies Allergy/AdvReac Type Severity Reaction Status Date / Time No Known Allergies Allergy Verified 03/16/18 02:55 Vitals:: Vital Signs - 8 hr 04/05/18 18:35 Temp 98.4 F HR 114 RR 17 BP 114/67 O2 Sat % 97 ED Review of Systems - Review of Systems General/Constitutional: No fever, No chills, No weight loss, No weakness, No diaphoresis, No edema, No loss of appetite Skin: No skin lesions, No rash, No bruising Head: No headache, No light-headedness Eyes: No loss of vision, No pain, No diplopia ENT: No earache, No nasal drainage, No sore throat, No tinnitus Neck: No neck pain, No swelling, No thyromegaly, No stiffness, No mass noted Cardio Vascular: No chest pain, No palpitations, No PND, No orthopnea, No edema Pulmonary: No SOB, No cough, No sputum, No wheezing GI: No nausea, No vomiting, No diarrhea, No pain, No melena, No hematochezia, No constipation, No hematemesis G/U: No dysuria, No frequency, No hematuria Musculoskeletal: No bone or joint pain, No back pain, No muscle pain Endocrine: No polyuria, No polydipsia Psychiatric: No prior psych history, No depression, No anxiety, No suicidal ideation Hematopoietic: No bruising, No lymphadenopathy Allergic/Immuno: No urticaria, No angioedema Neurological: No syncope, No focal symptoms, No weakness, No paresthesia, No headache, No seizure, No dizziness, No confusion, No vertigo ED Past Medical History - Past Medical History Past Medical History: Dyslipidemia (ALCOHOLIC LIVER DZ DRUG ABUSE), Other ( ALCHOLIC LIVER DZ ) Family Medical History - Family Member Mother History Unknown: Yes ED Physical Exam - Physical Examination General/Constitutional: Awake, Well-developed, well-nourished, Alert, No distress, GCS 15, Non-toxic appearing, Ambulatory Head: Atraumatic Eyes: Lids, conjuctiva normal, PERRL, EOMI Skin: Nl inspection, No rash, No skin lesions, No ecchymosis, Well hydrated, No lymphadenopathy ENMT: External ears, nose nl, Nasal exam nl, Lips, teeth, gums nl Neck: Nontender, Full ROM w/o pain, No JVD, No nuchal rigidity, No bruit, No mass, No stridor Respiratory: Nl effort/Exclusion, Clear to Auscultation, No Wheeze/Rhonchi/Rales Cardio Vascular: RRR, No murmur, gallop, rubs, NL S1 S2 GI: No tenderness/rebounding/guarding, Normal BS's : No CVA tenderness Extremities: No tenderness or effusion, No edema, Normal digits & nails Misc: Normal back, No paraspinal tenderness ED Labs/Radiology/EKG Results - Lab Results Results: Laboratory Tests 04/05/18 04/05/18 19:30 19:30 WBC 5.5 RBC 3.79 L Hgb 12.9 Hct 37.9 L MCV 100.1 H MCH 34.2 H MCHC Differential 34.1 RDW 20.3 H Plt Count 231 MPV 6.9 Neutrophils % 49.3 Lymphocytes % 38.7 Monocytes % 7.8 Eosinophils % 2.1 Basophils % 2.1 H Sodium 138 Potassium 3.8 Chloride 103 Carbon Dioxide 23.2 Anion Gap 15.6 BUN 9 Creatinine 0.9 Est GFR ( Amer) > 60.0 Est GFR (Non-Af Amer) > 60.0 BUN/Creatinine Ratio 10.0 Glucose 109 H Calcium 9.2 Total Bilirubin 0.6 AST 79 H ALT 45 Alkaline Phosphatase 288 H Total Protein 7.3 Albumin 4.2 Globulin 3.1 Albumin/Globulin Ratio 1.4 Ethyl Alcohol 253 H ED Assessment - Assessment General Assessment: DRUG ABUSE CHRONIC PAIN METH ABUSE ED Septic Shock - . Is Septic Shock (SBP<90, OR Lactate>4 mmol\L) present?: No - <6hrs of presentation: Vital Signs: Vital Signs - 8 hr 04/05/18 18:35 Temp 98.4 F HR 114 RR 17 BP 114/67 O2 Sat % 97 ED Reassessment (Disposition) - Reassessment Reassessment Condition:: Unchanged - Diagnosis Diagnosis:: CHRONIC PAIN DRUG ABUSE MULTIPLE DRUG ABUSE - Patient Disposition Discharge/Transfer:: Home Condition at Disposition:: Stable
== END 2018-04-05 20:50 | disposition home or self-care (01) ==
LOC: ER 18:13
DX: G89.29 Other chronic pain (principal); R10.9 Unspecified abdominal pain; R51 Headache; F11.129 Opioid abuse with intoxication, unspecified; F15.10 Other stimulant abuse, uncomplicated; R11.0 Nausea; E78.5 Hyperlipidemia, unspecified; Z76.5 Malingerer [conscious simulation]
CPT/HCPCS: 36415-UA; 80053-TC; 80320-TC; 85025-TC; Z7502

== ENCOUNTER 2018-04-10 00:25 | Emergency (ER) | payer MEDICAID ==
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
[2018-04-10 01:05] LABS: % BASOPHILS 1.5 % (0.0-2.0); % EOSINOPHILS 1.4 % (0.0-5.0); % LYMPHOCYTES 54.6 % (20.0-50.0); % MONOCYTES 9.7 % (2.0-10.0); % NEUTROPHILS 32.8 % (40.0-80.0); BASOPHILE ABSOLUTE 0.1 Th/cumm (0-0.2); EOSINOPHILE ABSOLUTE 0.1 Th/cmm (0.1-0.4); HEMATOCRIT 37.1 % (41.0-60); HEMOGLOBIN 12.6 gm/dL (12-16); LYMPHOCYTE ABSOLUTE 2.4 Th/cmm (1.5-3.0); MEAN CELL VOLUME 100.5 fl (80-99); MEAN CORPUSCULAR HEMOGLOBIN 34.2 pg (26.0-30.0); MONOCYTE ABSOLUTE 0.4 Th/cmm (0.3-1.0); NEUTROPHILE ABSOLUTE 1.5 Th/cmm (1.8-8.0); PLATELET COUNT 182 Th/cmm (150-400); RED BLOOD COUNT 3.69 Mil/cmm (4.30-5.70); RED CELL DISTRIBUTION WIDTH 18.5 % (11.5-20.0)
[2018-04-10 01:21] LABS: ANION GAP 15.9 (7.0-16.0); BUN - UREA NITROGEN 15 mg/dL (7-25); CALCIUM SERUM 8.1 mg/dL (8.6-10.3); CHLORIDE 107 mEq/L (98-107); CREATININE - SERUM 0.8 mg/dL (0.7-1.3); GFR AFRICAN-AMERICAN > 60.0 ml/min (>90); GFR NON AFRICAN-AMERICAN > 60.0 ml/min; GLUCOSE 109 mg/dL (70-105); LIPASE 21 U/L (11-82); MAGNESIUM 2.2 mg/dL (1.9-2.7); POTASSIUM SERUM 3.9 mEq/L (3.5-5.1); SODIUM SERUM 139 mEq/L (136-145)
[2018-04-10 05:05] LABS: WHITE BLOOD COUNT 4.5 Th/cmm (4.8-10.8)
== END 2018-04-10 01:50 | disposition home or self-care (01) ==
LOC: ER 00:25
DX: K29.20 Alcoholic gastritis without bleeding (principal); F10.129 Alcohol abuse with intoxication, unspecified; S00.31XD Abrasion of nose, subsequent encounter; E11.9 Type 2 diabetes mellitus without complications; E78.5 Hyperlipidemia, unspecified; F17.200 Nicotine dependence, unspecified, uncomplicated; Y90.8 Blood alcohol level of 240 mg/100 ml or more; Z90.49 Acquired absence of other specified parts of digestive tract; Z98.890 Other specified postprocedural states; Y04.0XXD Assault by unarmed brawl or fight, subsequent encounter
CPT/HCPCS: 36415-UA; 80048-TC; 80320-TC; 83690-TC; 83735-TC; 85025-TC; Z7502

== ENCOUNTER 2018-04-10 07:21 | Emergency (ER) | payer MEDICAID ==
[2018-04-10 08:25] LABS: AMPHETAMINE URINE NEGATIVE (NEGATIVE); BARBITURATES URINE NEGATIVE (NEGATIVE); CANNABINOID THC NEGATIVE (NEGATIVE); COCAINE METABOLITE QUAL URINE NEGATIVE (NEGATIVE); METHADONE URINE NEGATIVE (NEGATIVE); METHAMPHETAMINES QUAL URINE NEGATIVE (NEGATIVE); OPIATES (MORPHINE) QUAL. URINE POSITIVE (NEGATIVE); PHENCYCLIDINE (PCP) URINE NEGATIVE (NEGATIVE); TRICYCLICS (TCA) QUAL. URINE NEGATIVE (NEGATIVE)
[2018-04-10 08:26] LABS: BENZODIAZEPINES QUAL URINE POSITIVE (NEGATIVE)
--- NOTE | 2018-04-10 08:46 | ED Physician Chart ---
ED Chief Complaint/HPI - Patient Information Date Seen:: 04/10/18 Time Seen:: 07:37 Chief Complaint:: chronic pain. wants pain meds History of Present Illness:: chronic pain. wants pain meds states he has total body pain. hungry. had back surgery and gallbladder removal and R inguinal hernia repair. Allergies:: Allergies Allergy/AdvReac Type Severity Reaction Status Date / Time No Known Allergies Allergy Verified 03/16/18 02:55 Vitals:: Vital Signs - 8 hr 04/10/18 07:37 Temp 96.1 F HR 97 RR 22 BP 125/94 O2 Sat % 98 Historian:: Patient, Medical Records Review:: Nurse's Note Reviewed ED Review of Systems - Review of Systems General/Constitutional: No fever, No chills, No weakness, No diaphoresis, No loss of appetite, Other (smell of alcohol on breath (admitted to drinking alcohol this morning); ) Skin: No skin lesions, No rash, No bruising Head: No headache, No light-headedness Eyes: No loss of vision, No pain, No diplopia ENT: No earache, No nasal drainage, No sore throat, No tinnitus Neck: No neck pain, No swelling, No thyromegaly, No stiffness, No mass noted Cardio Vascular: No chest pain, No palpitations, No PND, No orthopnea, No edema Pulmonary: No SOB, No cough, No sputum, No wheezing GI: No nausea, No vomiting, No diarrhea, No pain, No melena, No hematochezia, No constipation, No hematemesis G/U: No dysuria, No frequency, No hematuria Musculoskeletal: No bone or joint pain, No back pain, No muscle pain Endocrine: No polyuria, No polydipsia Psychiatric: No prior psych history, No depression, No anxiety, No suicidal ideation Hematopoietic: No bruising, No lymphadenopathy Allergic/Immuno: No urticaria, No angioedema Neurological: No syncope, No focal symptoms, No weakness, No paresthesia, No headache, No seizure, No dizziness, No confusion, No vertigo, Other (total body pain) ED Past Medical History - Past Medical History Obtainable: Yes Past Medical History: Other (opiate abuse. alcohol abuse; drug seeking behavior ; chronic pain) Surgical History: Cholecystectomy, Hernia, other (had back surgery and gallbladder removal and R inguinal hernia repair.) Family Medical History - Family Member Mother History Unknown: Yes Ethnicity: Non- Living Status: Still Living ED Physical Exam - Physical Examination General/Constitutional: Awake, Well-developed, well-nourished, Alert, No distress, GCS 15, Non-toxic appearing, Ambulatory Other Gen/Cons comments:: strong smell of alcohol on breath. Head: Atraumatic Eyes: Lids, conjuctiva normal, PERRL, EOMI Skin: Nl inspection, No rash, No skin lesions, No ecchymosis, Well hydrated, No lymphadenopathy Other Skin comments:: multiple tattoos. multiple areas where adhesive is present from EKG electrodes. ENMT: External ears, nose nl, Nasal exam nl, Lips, teeth, gums nl Neck: Nontender Respiratory: Nl effort/Exclusion, Clear to Auscultation, No Wheeze/Rhonchi/Rales Cardio Vascular: RRR, No murmur, gallop, rubs, NL S1 S2 GI: No tenderness/rebounding/guarding, No organomegaly, No hernia, Normal BS's, Nondistended, No mass/bruits, No McBurney tenderness : No CVA tenderness Extremities: No tenderness or effusion, Full ROM, normal strength in all extremities, No edema, Normal digits & nails Neuro/Psych: Alert/oriented, Normal sensory exam, Normal motor strength, Normal gait, No focal deficits Misc: Normal back, No paraspinal tenderness ED Labs/Radiology/EKG Results - Lab Results Results: Laboratory Tests 04/10/18 07:45 Urine Opiates Screen POSITIVE H Urine Methadone Screen NEGATIVE Ur Barbiturates Screen NEGATIVE Ur Tricyclics Screen NEGATIVE Ur Phencyclidine Scrn NEGATIVE Amphetamines Screen NEGATIVE U Methamphetamines Scrn NEGATIVE U Benzodiazepines Scrn POSITIVE H U Cocaine Metab Screen NEGATIVE U Cannabinoids Screen NEGATIVE ED Assessment - Assessment General Assessment: said Thank you God after injection of Toradol. ED Septic Shock - . Is Septic Shock (SBP<90, OR Lactate>4 mmol\L) present?: No - <6hrs of presentation: Vital Signs: Vital Signs - 8 hr 04/10/18 07:37 Temp 96.1 F HR 97 RR 22 BP 125/94 O2 Sat % 98 ED Reassessment (Disposition) - Reassessment Reassessment Condition:: Improved - Diagnosis Diagnosis:: Chronic pain Opiate usage Benzodiazepine usage Drug seeking behavior - Aftercare/Follow up Instructions Aftercare/Follow-Up Instructions:: Refer to Discharge Instructions Notes:: follow up with primary care provider. Medication Prescribed:: none. - Patient Disposition Discharge/Transfer:: Home Condition at Disposition:: Stable, Improved
== END 2018-04-10 08:55 | disposition home or self-care (01) ==
LOC: ER 07:21
DX: G89.29 Other chronic pain (principal); M79.10 Myalgia, unspecified site; F11.90 Opioid use, unspecified, uncomplicated; F13.90 Sedative, hypnotic, or anxiolytic use, unspecified, uncomplicated; Z72.89 Other problems related to lifestyle; Z90.49 Acquired absence of other specified parts of digestive tract; Z98.890 Other specified postprocedural states
CPT/HCPCS: 99283; 96372; 80307; J1885; Z7502

== ENCOUNTER 2018-04-14 16:06 | Inpatient (IN) | payer MEDICAID ==
[2018-04-14] MEDS ORDERED: Sodium Chloride 0.9% 1,000 ML IV ONE (16:39)
[2018-04-14] MEDS ORDERED: Morphine Sulfate 2 mg/mL 1mL Syr IVP ONE (16:39)
[2018-04-14] MEDS ORDERED: Morphine Sulfate 2 mg/mL 1mL Syr ONE (16:46)
--- NOTE | 2018-04-14 16:53 | ED Physician Chart ---
ED Chief Complaint/HPI - Patient Information Date Seen:: 04/14/18 Time Seen:: 16:45 Chief Complaint:: Fall History of Present Illness:: onset x 3 hours of intermittent, diffuse, crampy abdominal pain, and nausea after an accidental fall 3 hours [employer]; no report of LOC, ALOC, AMS, H/As, neck pain, S/T, cough, C/P, SOB, A/V/D/C, fever, chills, or urinary s/s; pt's last tetanus shot: < 5 years; UTD Allergies:: Allergies Allergy/AdvReac Type Severity Reaction Status Date / Time No Known Allergies Allergy Verified 03/16/18 02:55 Vitals:: Vital Signs - 8 hr 04/14/18 16:43 Temp 98.8 F HR 114 RR 18 BP 102/72 O2 Sat % 97 Historian:: Patient Review:: Nurse's Note Reviewed ED Review of Systems - Review of Systems General/Constitutional: No fever, No chills, No weight loss, No weakness, No diaphoresis, No edema, No loss of appetite Skin: No skin lesions, No rash, No bruising Head: No headache, No light-headedness Eyes: No loss of vision, No pain, No diplopia ENT: No earache, No nasal drainage, No sore throat, No tinnitus Neck: No neck pain, No swelling, No thyromegaly, No stiffness, No mass noted Cardio Vascular: No chest pain, No palpitations, No PND, No orthopnea, No edema Pulmonary: No SOB, No cough, No sputum, No wheezing GI: Nausea, Vomiting, Diarrhea, Pain, No melena, No hematochezia, No constipation, No hematemesis G/U: No dysuria, No frequency, Hematuria, No nacturia Musculoskeletal: No bone or joint pain, No back pain, No muscle pain Endocrine: No polyuria, No polydipsia Psychiatric: No prior psych history, No depression, No anxiety, No suicidal ideation, No homicidal ideation, No auditory hallucination, No visual hallucination Hematopoietic: No bruising, No lymphadenopathy Allergic/Immuno: No urticaria, No angioedema Neurological: No syncope, No focal symptoms, No weakness, No paresthesia, No headache, No seizure, No dizziness, No confusion, No vertigo ED Past Medical History - Past Medical History Obtainable: Yes Past Medical History: HTN, Dyslipidemia, PUD/GERD Family History: HTN Social History: Smoker, Alcohol, No Drug Use, Single Surgical History: other (Back Surgery) Psychiatricy History: None Medication: Reviewed Family Medical History - Family Member Mother History Unknown: Yes Ethnicity: Non- Living Status: Still Living ED Physical Exam - Physical Examination General/Constitutional: Awake, Well-developed, well-nourished, Alert, No distress, GCS 15, Non-toxic appearing, Ambulatory Head: Atraumatic Eyes: Lids, conjuctiva normal, PERRL, EOMI Skin: Nl inspection, No rash, No skin lesions, No ecchymosis, Well hydrated, No lymphadenopathy ENMT: External ears, nose nl, TM canals nl, Nasal exam nl, Lips, teeth, gums nl , Oropharynx nl, Tonsils nl Neck: Nontender, Full ROM w/o pain, No JVD, No nuchal rigidity, No bruit, No mass, No stridor Respiratory: Nl effort/Exclusion, Clear to Auscultation, No Wheeze/Rhonchi/Rales Cardio Vascular: RRR, No murmur, gallop, rubs, NL S1 S2, Carotid/Femoral/Distal pulses equal bilaterally GI: No tenderness/rebounding/guarding, No organomegaly, No hernia, Normal BS's, Nondistended, No mass/bruits, No McBurney tenderness, Rectum exam nl Other comments:: + Left CVAT Extremities: No tenderness or effusion, Full ROM, normal strength in all extremities, No edema, Normal digits & nails Neuro/Psych: Alert/oriented, DTR's symmetric, Normal sensory exam, Normal motor strength, Judgement/insight normal, Mood normal, Normal gait, No focal deficits Misc: Normal back, No paraspinal tenderness ED Labs/Radiology/EKG Results - Lab Results Comments:: Reviewed - Radiology Results Comments:: + Left UVJ Calculus - EKG Interpretations EKG Time:: 16:50 Rate & Rhythm: 108; ST Comments:: non-specific st-t changes ED Septic Shock - . Is Septic Shock (SBP<90, OR Lactate>4 mmol\L) present?: No - <6hrs of presentation: Vital Signs: Vital Signs - 8 hr 04/14/18 16:43 Temp 98.8 F HR 114 RR 18 BP 102/72 O2 Sat % 97 ED Reassessment (Disposition) - Reassessment Reassessment Condition:: Improved - Diagnosis Diagnosis:: Fall; Abdominal Pain; N/V/D; Back Pain; Flank Pain; Dehydration; Tachycardia; Ureterolithiasis; UTI; Intractable Pain; Hematuria; Substance Abuse - Aftercare/Follow up Instructions Aftercare/Follow-Up Instructions:: Counseled pt regarding lab results/diagnosis & need follow up, Counseled pt & family regarding lab results/diagnosis & need follow up - Patient Disposition Discharge/Transfer:: Acute Care w/in this hosp Accepting Physician:: Dr. Richter Time Called:: 1829 Time Responded:: 18:30 Admitted to:: Med/Surg Spoke to:: Dr. Richter Admitting Medical Physician:: Dr. Richter Condition at Disposition:: Stable, Improved
[2018-04-14 17:11] LABS: % BASOPHILS 1.4 % (0.0-2.0); % EOSINOPHILS 1.3 % (0.0-5.0); % LYMPHOCYTES 22.9 % (20.0-50.0); % MONOCYTES 5.8 % (2.0-10.0); % NEUTROPHILS 68.6 % (40.0-80.0); BASOPHILE ABSOLUTE 0.1 Th/cumm (0-0.2); EOSINOPHILE ABSOLUTE 0.1 Th/cmm (0.1-0.4); HEMATOCRIT 35.7 % (41.0-60); HEMOGLOBIN 12.4 gm/dL (12-16); LYMPHOCYTE ABSOLUTE 1.4 Th/cmm (1.5-3.0); MEAN CELL VOLUME 102.9 fl (80-99); MEAN CORPUSCULAR HEMOGLOBIN 35.6 pg (26.0-30.0); MEAN CORPUSCULAR HGB CONC 34.7 pg (28.0-36.0); MEAN PLATELET VOLUME 7.7 fl; MONOCYTE ABSOLUTE 0.4 Th/cmm (0.3-1.0); NEUTROPHILE ABSOLUTE 4.1 Th/cmm (1.8-8.0); PLATELET COUNT 165 Th/cmm (150-400); RED BLOOD COUNT 3.47 Mil/cmm (4.30-5.70); RED CELL DISTRIBUTION WIDTH 16.6 % (11.5-20.0); WHITE BLOOD COUNT 6.1 Th/cmm (4.8-10.8)
[2018-04-14 17:30] LABS: ALB/GLOB RATIO 1.5 (1.0-1.8); ALBUMIN 4.3 gm/dL (4.2-5.5); ALKALINE PHOSPHATASE 336 U/L (34-104); AMYLASE SERUM 62 U/L (29-103); ANION GAP 16.9 (7.0-16.0); BILIRUBIN,TOTAL 0.8 mg/dL (0.3-1.0); BUN - UREA NITROGEN 9 mg/dL (7-25); CHLORIDE 108 mEq/L (98-107); CHOLESTEROL 200 mg/dL (<200); CREATININE - SERUM 0.8 mg/dL (0.7-1.3); CREATININE KINASE 157 U/L (30-223); GFR AFRICAN-AMERICAN > 60.0 ml/min (>90); GFR NON AFRICAN-AMERICAN > 60.0 ml/min; GLUCOSE 86 mg/dL (70-105); HDL -HIGH DENSITY LIPOPROTEIN 111 mg/dL (23-92); LIPASE 15 U/L (11-82); POTASSIUM SERUM 3.9 mEq/L (3.5-5.1); SGOT 159 U/L (13-39); SGPT/ALT 81 U/L (7-52); SODIUM SERUM 142 mEq/L (136-145); TOTAL PROTEIN,SERUM 7.2 gm/dL (6.0-8.3); TRIGLYCERIDES 112 mg/dL (<150)
[2018-04-14 17:42] LABS: INR 0.92 (0.5-1.4)
[2018-04-14 17:44] LABS: URINE SOURCE CLEAN C
[2018-04-14 17:45] LABS: PROTHROMBIN TIME (TEST) 9.6 SECONDS (9.5-11.5)
[2018-04-14 17:46] LABS: URINE BILIRUBIN NEGATIVE (NEGATIVE); URINE BLOOD LARGE (NEGATIVE); URINE CLARITY CLEAR (CLEAR); URINE COLOR YELLOW; URINE GLUCOSE (UA) NEGATIVE (NEGATIVE); URINE KETONE NEGATIVE (NEGATIVE); URINE LEUKOCYTE ESTERASE NEGATIVE (NEGATIVE); URINE MICROSCOPIC INDICATED? YES; URINE NITRATE NEGATIVE (NEGATIVE); URINE PROTEIN NEGATIVE (NEGATIVE); URINE UROBILINOGEN 0.2 E.U./dL (0.2 - 1.0)
[2018-04-14 17:52] LABS: URINE BACTERIA FEW /hpf (NONE SEEN); URINE EPITHELIAL CELLS FEW /lpf (FEW); URINE WBC 0-2 /hpf (0-5)
[2018-04-14 17:58] LABS: AMPHETAMINE URINE NEGATIVE (NEGATIVE); BARBITURATES URINE NEGATIVE (NEGATIVE); BENZODIAZEPINES QUAL URINE POSITIVE (NEGATIVE); CANNABINOID THC POSITIVE (NEGATIVE); COCAINE METABOLITE QUAL URINE NEGATIVE (NEGATIVE); METHADONE URINE NEGATIVE (NEGATIVE); METHAMPHETAMINES QUAL URINE NEGATIVE (NEGATIVE); OPIATES (MORPHINE) QUAL. URINE POSITIVE (NEGATIVE); PHENCYCLIDINE (PCP) URINE NEGATIVE (NEGATIVE); TRICYCLICS (TCA) QUAL. URINE NEGATIVE (NEGATIVE)
[2018-04-14] MEDS ORDERED: cefTRIAXone 1 GM in Sodium Chloride 0.9% 50 ML IV ONE (18:23)
[2018-04-14] MEDS: D5-0.45NS w/10 mEq KCL 1,000 ML IV SCH (21:26)
[2018-04-14 21:38] VITALS: BP 123/84
[2018-04-14] MEDS: HYDROmorphone 2 mg/mL 1mL Vial IVP PRN (21:40)
--- NOTE | 2018-04-14 22:06 | History & Physical ---
ADMIT DATE: CHIEF COMPLAINT: Bilateral flank pain. HISTORY OF PRESENT ILLNESS: The patient is a 38-year-old male with long history of substance dependency, presented to the Emergency Room complaining of abdominal pain. Initial workup sent for renal stone, admitted to the hospital, started on IV fluid, antibiotic. Urology consultation obtained. He denies any nausea, vomiting, fever, or chills. No dysuria or hematuria. PAST MEDICAL HISTORY: Significant for substance dependency. PAST SURGICAL HISTORY: Cholecystectomy. ALLERGIES: None. MEDICATIONS: Follow admission reconciliation. SOCIAL HISTORY: Chronic smoker, drinks socially, uses marijuana. FAMILY HISTORY: Noncontributory. REVIEW OF SYSTEMS: IMMUNO SYSTEM: No history of chronic immune disorder. CARDIOVASCULAR SYSTEM: No coronary artery disease. ENDOCRINE SYSTEM: No diabetes or thyroid problem. GASTROINTESTINAL SYSTEM: No upper or lower GI bleed. NEUROLOGICAL SYSTEM: Seizure disorder. SKELETOMUSCULAR SYSTEM: No muscular dystrophy. HEMATOLOGIC SYSTEM: No bleeding tendencies. RESPIRATORY SYSTEM: No asthma. GENITOURINARY: No dysuria or hematuria. PHYSICAL EXAMINATION: GENERAL: He is awake, alert, oriented, not in distress. VITAL SIGNS: Temperature 98.1, heart rate 112, blood pressure . HEENT: Normocephalic. Pupils reacting equally to light and accommodation. Sclerae clear. NECK: Supple. Negative for lymphadenopathy, JVD, or bruit. CHEST: Entry of air bilaterally normal. No rhonchi or wheezing. HEART: S1, S2 normal. No gallop rhythm. ABDOMEN: Soft, bowel sounds positive. EXTREMITIES: No edema. NEUROLOGIC: Awake, alert, oriented, no focal motor or sensory deficits. Cranial nerves 2-12 are intact. LABORATORY DATA: White blood 6.1, hemoglobin 12.4, hematocrit 35.7, platelets 165. Sodium 142, potassium 3.9, BUN 90, and creatinine . Urinalysis is negative. Toxicology positive for opiate, benzodiazepine, and cannabinoids. ASSESSMENT: 1. Renal stone. 2. Substance dependency. PLAN: The patient admitted to the hospital under Dr. Richter's service, started on IV fluid, antibiotic, pain medication. The patient will resume his home medication. Urology consultation obtained. The patient is a full code. JOB# [id number]
[2018-04-15] MEDS: HYDROmorphone 2 mg/mL 1mL Vial IVP PRN ×3 (01:42→10:39)
[2018-04-15] MEDS: D5-0.45NS w/10 mEq KCL 1,000 ML IV SCH (06:26)
[2018-04-15] MEDS ORDERED: Influenza Vaccine (5 yr & older) 0.5 ml Syr IM ONE (08:29)
--- NOTE | 2018-04-15 08:38 | Diagnostic Imaging Report ---
Exam: CT examination of the pelvis HISTORY: Dull pain. Total DLP equals 725 CTDI equals 34.4 Findings: Multiple contiguous thin section of the abdomen pelvis obtained from lower thorax to pubic symphysis without the administration intravenous or oral contrast material. The study correlated with prior exam of 03/16/2018. The study demonstrates normal appearance spleen spleen. Fatty infiltration liver parenchyma appreciated. The gallbladder has been surgically resected. Multiple calcifications through the pancreas suggestive of prior pancreatitis. The kidneys demonstrate no evidence of obstructive uropathy or nephrolithiasis. The bowel gas distribution is nonspecific. No free fluid is noted. Large amount of fecal content in the lower colon suggestive of fecal impaction. The uterine bladder is intact. There is evidence for calcification overlying the left lower portion of the bladder clinical correlation recommended. IMPRESSION: Fatty infiltration of liver parenchyma Coarse pancreatic calcifications suggestive of sequela of prior chronic pancreatitis. Status post cholecystectomy. Large amount fecal content in the lower colon.
--- NOTE | 2018-04-15 08:39 | Diagnostic Imaging Report ---
Chest x-ray single view History: Chest pain Comparison: 11/11/2017 The heart size is normal. No focal pulmonary parenchymal processes. No hilar or mediastinal abnormalities. Impression: No acute abnormalities
[2018-04-15] MEDS ORDERED: Fleet Enema 135 mL RC ONE (13:00)
--- NOTE | 2018-04-15 15:10 | Consultation ---
DATE OF CONSULTATION: 04/15/2018 REASON FOR CONSULTATION: Seen for abdominal pain, microhematuria, possible stone. HISTORY OF PRESENT ILLNESS: This is a 38-year-old who came to the Emergency Room yesterday with complaints of abdominal pain after a fall. He seems to have hurt his nose. He is complaining of the abdominal pain being diffuse and crampy for 3 hours, but on close questioning admits to about one year of this pain, undergoing multiple evaluations by several doctors. He claims to have had a cholecystectomy during this time and claims to have had pancreatitis as well. He came in complaining of nausea as well and admitted to having constipation also. No urinary symptoms. No history of stone disease in himself or family. No history of urologic surgery, but claims to have had UTI 6 months ago. No STDs. PAST SURGICAL HISTORY: Cholecystectomy. He also had back surgery. SOCIAL HISTORY: Substance abuse and smoking as well as alcohol abuse. MEDICAL HISTORY: Hypertension, hyperlipidemia, peptic ulcer, and GERD. HOME MEDICATIONS: Gabapentin, hydrocodone and morphine, all indicative of substance abuse over long periods of time. REVIEW OF SYSTEMS: No fever or weight loss, headache, or seizures. Denied sore throat, coughing, shortness of breath or chest pain. Diffuse abdominal pain. No diarrhea. Had nausea that has resolved. Admits to significant constipation. No dysuria or hematuria. Denies skin or joint problems. PHYSICAL EXAMINATION: GENERAL: He is awake, in moderate distress, complains nonstop about his abdominal pain. VITAL SIGNS: Temperature 98.4, heart rate 109, blood pressure 112/82. No fever recorded in the hospital. HEAD AND NECK: Normocephalic. Nose is bandaged for injury. Pupils equal and reactive. No jaundice. Thyroid and lymph nodes not palpable. Carotid bruit absent. CHEST: Symmetrical. LUNGS: Clear. No rales or rhonchi. HEART: Sounds normal, in sinus rhythm, no murmur. ABDOMEN: Soft but guarded, does not allow adequate exam. No organomegaly, mass, or hernia that I can feel in the limited exam. GENITALIA: Unremarkable. EXTREMITIES: No edema or lymphadenopathy. NEUROLOGIC: Nonfocal. Moves all 4 limbs. LABORATORY DATA: White count 6.1, hemoglobin 12.4. Electrolytes, chloride 108, BUN 9, creatinine 0.8, AST 159, ALT 81, alkaline phosphatase 336, HDL cholesterol 111. Large amount of blood in the urine, but only 5-10 red cells. Urine screen positive for opiates and benzodiazepines, and cannabis. CT scan of the abdomen and pelvis shows absence of any stone, hydronephrosis, masses, or abnormalities. A large amount of stool in the lower colon consistent with history of chronic constipation. IMPRESSION: 1. Chronic abdominal pain secondary to constipation, secondary to substance abuse and dietary habits. Recommend Fleets enema, diet changes, stool softeners and fiber intake. 2. Substance abuse. 3. History of cholecystectomy. JOB# [id number]
[2018-04-15] MEDS ORDERED: cefTRIAXone 1 GM in Sodium Chloride 0.9% 50 ML IV SCH (16:00)
== END 2018-04-15 16:10 | disposition home or self-care (01) | DRG 254 ==
LOC: ER 16:06 → MSI 18:58
PROVIDERS: ADMIT Family Medicine; ATTEND Family Medicine
DX: K59.00 Constipation, unspecified (principal); E78.5 Hyperlipidemia, unspecified; N39.0 Urinary tract infection, site not specified; N20.2 Calculus of kidney with calculus of ureter; F19.20 Other psychoactive substance dependence, uncomplicated; I10 Essential (primary) hypertension; K21.9 Gastro-esophageal reflux disease without esophagitis; F17.210 Nicotine dependence, cigarettes, uncomplicated; E86.0 Dehydration; R31.9 Hematuria, unspecified; R00.0 Tachycardia, unspecified; W18.30XA Fall on same level, unspecified, initial encounter; K27.9 Peptic ulcer, site unspecified, unspecified as acute or chronic, without hemorrhage or perforation; G89.29 Other chronic pain; Y93.89 Activity, other specified; Y92.89 Other specified places as the place of occurrence of the external cause; Y99.8 Other external cause status; Z90.49 Acquired absence of other specified parts of digestive tract; Z82.49 Family history of ischemic heart disease and other diseases of the circulatory system
CPT/HCPCS: 36415-UA; 71045-TC; 80053-TC; 80061-TC; 80307; 81001-TC; 82150-TC; 82550-TC; 83690-TC; 83880-TC; 84484-TC; 85025-TC; 85610-TC; 87086-90; 93005; 94760; 96375; J0696; J1170; J2060; J2270; J2405; J7030; Z7610

== ENCOUNTER 2018-04-21 02:01 | Emergency (ER) | payer MEDICAID ==
--- NOTE | 2018-04-21 02:35 | ED Physician Chart ---
ED Chief Complaint/HPI - Patient Information Date Seen:: 04/21/18 Time Seen:: 02:25 Chief Complaint:: abdominal pain History of Present Illness:: location: general quality: abdominal pain severity: mild duration: one day context: pt reports onset of upper abdominal pain, nonradiating. mild intensity. did not take any medication for this pain. says he came to ER several times for the same pain this month. sometimes given narcotics. other times none. comes to ER today reporting abdominal pain.no vomiting, no diarrhea, no bleeding. pt is homeless. on arrival to ER pt asks for something to eat. says he is hungry. no fever, no seizure, no rash, no gas or bloating. mod factors: none assoc s/s: none hx from pt. Allergies:: Allergies Allergy/AdvReac Type Severity Reaction Status Date / Time No Known Allergies Allergy Verified 04/21/18 02:06 Vitals:: Vital Signs - 8 hr 04/21/18 02:05 Temp 98.1 F HR 92 RR 16 BP 111/79 O2 Sat % 98 Historian:: Patient Review:: Nurse's Note Reviewed ED Review of Systems - Review of Systems General/Constitutional: No fever Skin: No rash Head: No headache Eyes: No loss of vision ENT: No sore throat Neck: No stiffness Cardio Vascular: No edema Pulmonary: No cough GI: No vomiting, No diarrhea G/U: No hematuria Musculoskeletal: No bone or joint pain Endocrine: No polyuria Hematopoietic: No bruising Allergic/Immuno: No angioedema Neurological: No syncope, No seizure ED Past Medical History - Past Medical History Past Medical History: Other (prior history of abdominal pain - no diagnosis) Family History: None Social History: Smoker, Alcohol, Illicit Drug Use, Single, Homeless Surgical History: None Psychiatricy History: None Medication: Reviewed Family Medical History - Family Member Mother History Unknown: Yes Ethnicity: Non- Living Status: Still Living ED Physical Exam - Physical Examination General/Constitutional: Awake, Well-developed, well-nourished, Alert, No distress, GCS 15, Non-toxic appearing, Ambulatory Head: Atraumatic Eyes: Lids, conjuctiva normal, PERRL, EOMI Skin: Nl inspection, No ecchymosis, Well hydrated ENMT: External ears, nose nl, Nasal exam nl, Lips, teeth, gums nl Neck: Nontender, Full ROM w/o pain, No nuchal rigidity Respiratory: Nl effort/Exclusion, Clear to Auscultation, No Wheeze/Rhonchi/Rales Cardio Vascular: RRR GI: No tenderness/rebounding/guarding, No organomegaly, Normal BS's, Nondistended, No mass/bruits, No McBurney tenderness : No CVA tenderness Extremities: No tenderness or effusion, normal strength in all extremities, No edema, Normal digits & nails Neuro/Psych: Alert/oriented, Normal sensory exam, Normal motor strength, Judgement/insight normal, Mood normal, No focal deficits Misc: Normal back, No paraspinal tenderness ED Labs/Radiology/EKG Results - Lab Results Results: medical decision making pt with complaint of abdominal pain prior to physician exam pt reports that he comes to the ER requests narcotics: dilaudid and norco pills and that he has received these medications before. wants to receive more of these medications. history is only of abdominal pain. no diagnosis. pt says he uses ethanol. will obtain studies to determine diagnosis/source of abdominal pain. pt is made aware that if diagnostic work up is negative he will not receive any narcotics and may be discharged from ER. pt says he is aware and understands physician assessment. ED Assessment - Assessment General Assessment: medical decision making pt in stable conditiong during ER stay. etoh is elevated but remainder of labs without any life threatening changes, some mild abnormalities. pt with no acute pain. will advise reduce daily ethanol consumption and FU with clinic physician for further evaluation. ED Septic Shock - . Is Septic Shock (SBP<90, OR Lactate>4 mmol\L) present?: No - <6hrs of presentation: Vital Signs: Vital Signs - 8 hr 04/21/18 02:05 Temp 98.1 F HR 92 RR 16 BP 111/79 O2 Sat % 98 Assessment of Lungs: Lung CTA bilateral Assessment of Heart: RRR, No Rub, No Murmur Capillary refill evaluation: Capillary refill < 2 secs Skin Exam: Warm, Dry, Good Turgur ED Reassessment (Disposition) - Reassessment Reassessment:: pt stable while in ER pt is rechecked by physician and found to be without abdominal chaudhari. labs reviewed, no acute life threatening changes. possible that patient was inebriated and just wanted warm place to be until ethanol levels reduced to normal. will advise outpatient follow up in clinic. Reassessment Condition:: Unchanged - Diagnosis Diagnosis:: abdominal pain, improved - Patient Disposition Discharge/Transfer:: Home Condition at Disposition:: Stable, Improved (some spontaneous improvement)
[2018-04-21 04:00] LABS: HEMATOCRIT 36.6 % (41.0-60); HEMOGLOBIN 12.4 gm/dL (12-16); MEAN CELL VOLUME 102.5 fl (80-99); MEAN CORPUSCULAR HEMOGLOBIN 34.7 pg (26.0-30.0); MEAN CORPUSCULAR HGB CONC 33.8 pg (28.0-36.0); MEAN PLATELET VOLUME 6.6 fl; PLATELET COUNT 208 Th/cmm (150-400); RED BLOOD COUNT 3.57 Mil/cmm (4.30-5.70); RED CELL DISTRIBUTION WIDTH 15.8 % (11.5-20.0); WHITE BLOOD COUNT 4.5 Th/cmm (4.8-10.8)
[2018-04-21 04:22] LABS: ALB/GLOB RATIO 1.4 (1.0-1.8); ALBUMIN 3.9 gm/dL (4.2-5.5); ALKALINE PHOSPHATASE 372 U/L (34-104); AMYLASE SERUM 71 U/L (29-103); ANION GAP 16.7 (7.0-16.0); BILIRUBIN,TOTAL 0.6 mg/dL (0.3-1.0); BUN - UREA NITROGEN 9 mg/dL (7-25); CALCIUM SERUM 8.2 mg/dL (8.6-10.3); CARBON DIOXIDE 23.8 mEq/L (21.0-31.0); CHLORIDE 107 mEq/L (98-107); CREATININE - SERUM 0.7 mg/dL (0.7-1.3); GFR AFRICAN-AMERICAN > 60.0 ml/min (>90); GFR NON AFRICAN-AMERICAN > 60.0 ml/min; GLUCOSE 92 mg/dL (70-105); LIPASE 30 U/L (11-82); POTASSIUM SERUM 3.5 mEq/L (3.5-5.1); SGOT 195 U/L (13-39); SGPT/ALT 75 U/L (7-52); SODIUM SERUM 144 mEq/L (136-145); TOTAL PROTEIN,SERUM 6.6 gm/dL (6.0-8.3)
[2018-04-21 05:26] LABS: ANISOCYTOSIS 1+; BAND NEUTROPHILE 2 % (0-10); LYMPHOCYTE 46 % (20-50); MONOCYTE 4 % (2-10); NEUTROPHILS 48 % (40-80); PLATELET ESTIMATE ADEQUATE (NORMAL)
== END 2018-04-21 04:50 | disposition home or self-care (01) ==
LOC: ER 02:01
DX: R10.84 Generalized abdominal pain (principal); F17.200 Nicotine dependence, unspecified, uncomplicated; Z59.0 Homelessness
CPT/HCPCS: 36415-UA; 80053-TC; 80320-TC; 82150-TC; 83690-TC; 85007-TC; 85025-TC; Z7502

== ENCOUNTER 2018-04-29 09:42 | Inpatient (IN) | payer MEDICAID ==
--- NOTE | 2018-04-29 10:19 | ED Physician Chart ---
ED Chief Complaint/HPI - Patient Information Date Seen:: 04/29/18 Time Seen:: 09:55 Chief Complaint:: Abdominal Pain History of Present Illness:: onset x 8 hours of generalized, intermittent, crampy abdominal pain, N/V/D, melena, and hematemesis; pt admits to ETOH abuse; Last ETOH beverage: 3 hours ago; pt denies trauma, LOC, ALOC, AMS, H/As, S/T, neck pain, cough, C/P, SOB, A/ C, fever, chills, hematochezia, or urinary s/s Allergies:: Allergies Allergy/AdvReac Type Severity Reaction Status Date / Time No Known Allergies Allergy Verified 04/21/18 02:06 Vitals:: Vital Signs - 8 hr 04/29/18 09:54 Temp 98.7 F HR 89 RR 18 BP 120/84 Historian:: Patient Review:: Nurse's Note Reviewed ED Review of Systems - Review of Systems General/Constitutional: No fever, No chills, No weight loss, No weakness, No diaphoresis, No edema, No loss of appetite Skin: No skin lesions, No rash, No bruising Head: No headache, No light-headedness Eyes: No loss of vision, No pain, No diplopia ENT: No earache, No nasal drainage, No sore throat, No tinnitus Neck: No neck pain, No swelling, No thyromegaly, No stiffness, No mass noted Cardio Vascular: No chest pain, No palpitations, No PND, No orthopnea, No edema Pulmonary: No SOB, No cough, No sputum, No wheezing GI: Nausea, Vomiting, Diarrhea, Pain, Melena, Hematochezia, No constipation, Hematemesis G/U: No dysuria, No frequency, No hematuria, No nacturia Musculoskeletal: No bone or joint pain, No back pain, No muscle pain Endocrine: No polyuria, No polydipsia Psychiatric: No prior psych history, No depression, No anxiety, No suicidal ideation, No homicidal ideation, No auditory hallucination, No visual hallucination Hematopoietic: No bruising, No lymphadenopathy Allergic/Immuno: No urticaria, No angioedema Neurological: No syncope, No focal symptoms, No weakness, No paresthesia, No headache, No seizure, No dizziness, No confusion, No vertigo ED Past Medical History - Past Medical History Obtainable: Yes Past Medical History: No significant medical hx Family History: None Social History: Non Smoker, Alcohol, No Drug Use, Single, Homeless Surgical History: Cholecystectomy, Hernia Psychiatricy History: None Medication: Reviewed Family Medical History - Family Member Mother History Unknown: Yes Ethnicity: Non- Living Status: Still Living ED Physical Exam - Physical Examination General/Constitutional: Awake, Well-developed, well-nourished, Alert, No distress, GCS 15, Non-toxic appearing, Ambulatory Head: Atraumatic Eyes: Lids, conjuctiva normal, PERRL, EOMI Skin: Nl inspection, No rash, No skin lesions, No ecchymosis, Well hydrated, No lymphadenopathy Other Skin comments:: Left Foot/Toes Cellulitis ENMT: External ears, nose nl, TM canals nl, Nasal exam nl, Lips, teeth, gums nl , Oropharynx nl, Tonsils nl Neck: Nontender, Full ROM w/o pain, No JVD, No nuchal rigidity, No bruit, No mass, No stridor Respiratory: Nl effort/Exclusion, Clear to Auscultation, No Wheeze/Rhonchi/Rales Cardio Vascular: RRR, No murmur, gallop, rubs, NL S1 S2, Carotid/Femoral/Distal pulses equal bilaterally GI: No tenderness/rebounding/guarding, No organomegaly, No hernia, Normal BS's, Nondistended, No mass/bruits, No McBurney tenderness : No CVA tenderness Extremities: No tenderness or effusion, Full ROM, normal strength in all extremities, No edema, Normal digits & nails Neuro/Psych: Alert/oriented, DTR's symmetric, Normal sensory exam, Normal motor strength, Judgement/insight normal, Mood normal, Normal gait, No focal deficits Misc: Normal back, No paraspinal tenderness ED Labs/Radiology/EKG Results - Lab Results Comments:: Reviewed - Radiology Results Comments:: NAD - EKG Interpretations EKG Time:: 10:19 Rate & Rhythm: 83; NSR Comments:: non-specific st-t changes ED Septic Shock - . Is Septic Shock (SBP<90, OR Lactate>4 mmol\L) present?: No - <6hrs of presentation: Vital Signs: Vital Signs - 8 hr 04/29/18 09:54 Temp 98.7 F HR 89 RR 18 BP 120/84 ED Reassessment (Disposition) - Reassessment Reassessment Condition:: Improved - Diagnosis Diagnosis:: Dx: Abdominal Pain; Left Foot Cellulitis; ETOH Abuse; GI Bleed; N/V/D; AGE; Leukopenia; UTI; Sepsis; Substance Abuse; Lactic Acidosis; Alcohol Intoxication - Aftercare/Follow up Instructions Aftercare/Follow-Up Instructions:: Counseled pt regarding lab results/diagnosis & need follow up, Counseled pt & family regarding lab results/diagnosis & need follow up - Patient Disposition Discharge/Transfer:: Acute Care w/in this hosp Accepting Physician:: Dr. Jamil Time Called:: 1145 Time Responded:: 11:45 Admitted to:: Telemetry Spoke to:: Dr. Jamil Admitting Medical Physician:: Dr. Jamil Condition at Disposition:: Stable, Improved
[2018-04-29] MEDS ORDERED: cefTRIAXone 1 GM in Sodium Chloride 0.9% 50 ML IV ONE (10:26)
--- NOTE | 2018-04-29 10:36 | Diagnostic Imaging Report ---
CHEST X-RAY: AP view INDICATION: pain COMPARISON: 04/14/2018 FINDINGS: There is no focal consolidation or pleural effusions The heart is normal in size. The osseous structures demonstrate no acute abnormalities. IMPRESSION: No focal airspace consolidation identified.
[2018-04-29 11:03] LABS: URINE SOURCE CLEAN C
[2018-04-29 11:10] LABS: HEMATOCRIT 43.5 % (41.0-60); HEMOGLOBIN 14.4 gm/dL (12-16); MEAN CELL VOLUME 104.1 fl (80-99); MEAN CORPUSCULAR HEMOGLOBIN 34.6 pg (26.0-30.0); MEAN CORPUSCULAR HGB CONC 33.2 pg (28.0-36.0); PLATELET COUNT 162 Th/cmm (150-400); RED BLOOD COUNT 4.18 Mil/cmm (4.30-5.70); RED CELL DISTRIBUTION WIDTH 14.7 % (11.5-20.0)
[2018-04-29 11:14] LABS: INR 1.13 (0.5-1.4); PROTHROMBIN TIME (TEST) 11.6 SECONDS (9.5-11.5)
[2018-04-29 11:15] LABS: URINE BILIRUBIN NEGATIVE (NEGATIVE); URINE BLOOD TRACE (NEGATIVE); URINE GLUCOSE (UA) NEGATIVE (NEGATIVE); URINE KETONE NEGATIVE (NEGATIVE); URINE LEUKOCYTE ESTERASE NEGATIVE (NEGATIVE); URINE MICROSCOPIC INDICATED? YES; URINE NITRATE NEGATIVE (NEGATIVE); URINE PROTEIN NEGATIVE (NEGATIVE); URINE UROBILINOGEN 0.2 E.U./dL (0.2 - 1.0); WHITE BLOOD COUNT 2.6 Th/cmm (4.8-10.8)
[2018-04-29 11:23] LABS: URINE CLARITY CLEAR (CLEAR); URINE COLOR YELLOW
[2018-04-29 11:24] LABS: URINE RBC 0-2 /hpf (0-5); URINE WBC 0-2 /hpf (0-5)
[2018-04-29 11:25] LABS: URINE BACTERIA OCCASIONAL /hpf (NONE SEEN); URINE EPITHELIAL CELLS NONE SEEN /lpf (FEW)
[2018-04-29 11:32] LABS: AMPHETAMINE URINE NEGATIVE (NEGATIVE); BARBITURATES URINE NEGATIVE (NEGATIVE); BENZODIAZEPINES QUAL URINE POSITIVE (NEGATIVE); CANNABINOID THC POSITIVE (NEGATIVE); COCAINE METABOLITE QUAL URINE NEGATIVE (NEGATIVE); METHADONE URINE NEGATIVE (NEGATIVE); METHAMPHETAMINES QUAL URINE NEGATIVE (NEGATIVE); OPIATES (MORPHINE) QUAL. URINE NEGATIVE (NEGATIVE); PHENCYCLIDINE (PCP) URINE NEGATIVE (NEGATIVE); TRICYCLICS (TCA) QUAL. URINE NEGATIVE (NEGATIVE)
[2018-04-29 11:40] LABS: BAND NEUTROPHILE 0 % (0-10); NEUTROPHILS 40 % (40-80)
[2018-04-29 11:41] LABS: EOSINOPHIL 3 % (0-5); LYMPHOCYTE 45 % (20-50); MONOCYTE 12 % (2-10)
[2018-04-29] MEDS: Sodium Chloride 0.9% 1,000 ML IV ONE ×2 (12:22→17:27)
[2018-04-29 14:52] LABS: BUN - UREA NITROGEN 7 mg/dL (7-25); CHLORIDE 100 mEq/L (98-107); CREATININE - SERUM 0.7 mg/dL (0.7-1.3); GFR AFRICAN-AMERICAN > 60.0 ml/min (>90); GFR NON AFRICAN-AMERICAN > 60.0 ml/min; GLUCOSE 88 mg/dL (70-105); SODIUM SERUM 142 mEq/L (136-145)
[2018-04-29 14:53] LABS: ALBUMIN 4.3 gm/dL (4.2-5.5); ALKALINE PHOSPHATASE 377 U/L (34-104); BILIRUBIN,TOTAL 0.6 mg/dL (0.3-1.0); CALCIUM SERUM 9.1 mg/dL (8.6-10.3); CHOLESTEROL 319 mg/dL (<200); HDL -HIGH DENSITY LIPOPROTEIN 151 mg/dL (23-92); SGOT 260 U/L (13-39); SGPT/ALT 91 U/L (7-52); TOTAL PROTEIN,SERUM 8.7 gm/dL (6.0-8.3); TRIGLYCERIDES 225 mg/dL (<150)
[2018-04-29 14:54] LABS: AMYLASE SERUM 94 U/L (29-103); CREATININE KINASE 185 U/L (30-223); LIPASE 85 U/L (11-82)
[2018-04-29] MEDS ORDERED: Potassium Chloride 20 mEq ER Tab PO ONE ×2 (15:26→15:55)
[2018-04-29] MEDS ORDERED: Multivitamin Inj 10 ML, Thiamine HCL 100 MG, Magnesium Sulfate 2 GM, Folic Acid 1 MG in... IV ONE (17:00)
[2018-04-30] MEDS: Sodium Chloride 0.9% 1,000 ML IV SCH ×3 (01:39→17:53)
--- NOTE | 2018-04-30 08:42 | Diagnostic Imaging Report ---
CT scan of the brain without intravenous contrast HISTORY: Headache, trauma Total DLP equals 629 CTDI equals 31.5 Axial sections were obtained from the base of the skull to the vertex. There is a normal ventricular system size for age. There is enlargement of cerebral sulci and subarachnoid cisterns particularly for the patient's age. Findings consistent with a degree of cerebral atrophy. No acute parenchymal abnormalities. No intracerebral hemorrhage. No mass effect or shift of midline structures. No extra-axial masses or abnormal fluid collections. IMPRESSION: 1. Cerebral atrophy somewhat remarkable for the patient's age. Clinical correlation is needed. 2. No acute abnormalities
--- NOTE | 2018-04-30 08:44 | Diagnostic Imaging Report ---
CT scan cervical spine History: Pain, trauma Total DLP equals 410 CTDI equals 19.0 no Axial sections were obtained through the cervical spine region. Additional sagittal and coronal reformatted images are provided. No focal bony lesions are seen. Specifically, no fractures are identified. There is limited visualization of the margins of the cervical spinal cord. No obvious extradural soft tissue abnormalities are seen. The prevertebral soft tissues appear normal. Impression: 1. No acute abnormalities 2. Questionable incomplete development of the posterior arch of C1.
--- NOTE | 2018-04-30 08:46 | History and Physical ---
History of Present Illness - HPI Chief Complaint: Abdominal pain, and rectal bleeding. HPI: Patient refer that he has having abdominal pain and hematochezia. He is known in ER due to his frequents visit requesting morphine and Hydrocodone. Vital Signs: Last Vital Signs Temp 99.4 F 04/29/18 23:00 Pulse 89 04/29/18 23:00 Resp 18 04/30/18 04:30 BP 124/80 04/29/18 23:00 Pulse Ox 99 04/29/18 23:00 Past Medical History Cardiovascular: Report: No Pertinent Hx Pulmonary: Report: No Pertinent Hx [employer]: Report: No Pertinent Hx GI: Report: No Pertinent Hx Psych: Report: Addictions, Other (Addiction to opiates, alcohol and marijuana.) Musculoskeletal: Report: No Pertinent Hx Rheumatologic: Report: No pertinent Hx Infectious Disease: Report: No Pertinent Hx Renal/: Report: No Pertinent Hx Endocrine: Report: No Pertinent Hx Dermatology: Report: Cellulitis, Other (Cellulitis in toes) Family Medical History - Family Member Mother History Unknown: Yes Ethnicity: Non- Living Status: Still Living Social History Smoke: 1 pack per day Alcohol: Heavy Drugs: Cocaine, Marijuana Lives: Homeless Domestic Violence: Negative - Medications Home Medications: Home Medication Medication Instructions Recorded Type Gabapentin [Neurontin] 800 mg PO QID 04/05/18 History Hydrocodone/APAP 10 mg/325 mg 1 tab PO PRN PRN 04/05/18 History [[place] 10 mg/325 mg] Morphine Sulfate 15 mg PO PRN PRN 04/05/18 History - Allergies Allergies/Adverse Reactions: Allergies Allergy/AdvReac Type Severity Reaction Status Date / Time No Known Allergies Allergy Verified 04/21/18 02:06 Review of Systems - Review of Systems Constitutional: Report: Chills Eyes: Report: No Significant ENT: Report: No Significant Respiratory: Report: No Significant Cardiovascular: Report: No Significant Gastrointestinal: Report: No Significant Genitourinary: Report: No Significant Musculoskeletal: Report: Other (Body pain) Neurological: Report: Weakness Physical Exam - Physical Exam HEENT: Report: Ears Nose Throat within normal limits Neck: Report: Within normal limits Cardiovascular Systems: Report: Regular, Rate and Rhythm Respiratory: Report: Breath Sounds are within normal limits Abdomen: Report: Non-tender to palpation Back: Report: Inspection of back is within normal limits. Extremities: Report: Non-tender to palpation., Other (There is some cellulitis in toes of both feets.) Skin: Report: Color of skin is within normal limits, Warm Neuro/Psych: Report: A+Ox3, Other (There some shaking) - Lab Results All Lab Results last 24 hours: Laboratory Results - last 24 hr 04/29/18 04/29/18 04/29/18 10:49 10:49 10:49 WBC 2.6 L RBC 4.18 L Hgb 14.4 Hct 43.5 MCV 104.1 H MCH 34.6 H MCHC Differential 33.2 RDW 14.7 Plt Count 162 MPV 7.0 Add Manual Diff YES Band Neutrophils % 0 Neutrophils (Manual) 40 Lymphocytes 45 Monocytes 12 H Eosinophils 3 PT 11.6 H INR 1.13 PTT (Actin FS) 24.3 L Sodium 142 Potassium 3.0 L Chloride 100 Carbon Dioxide 22.0 Anion Gap 23.0 H BUN 7 Creatinine 0.7 Est GFR ( Amer) > 60.0 Est GFR (Non-Af Amer) > 60.0 BUN/Creatinine Ratio 10.0 Glucose 88 Whole Bld Lactic Acid Calcium 9.1 Total Bilirubin 0.6 AST 260 H ALT 91 H Alkaline Phosphatase 377 H Creatine Kinase 185 Troponin I B-Natriuretic Peptide Total Protein 8.7 H Albumin 4.3 Globulin 4.4 Albumin/Globulin Ratio 1.0 Triglycerides 225 H Cholesterol 319 H LDL Cholesterol Direct 113 HDL Cholesterol 151 H Amylase 94 Lipase 85 H Urine Source Urine Color Urine Clarity Urine pH Ur Specific [place] Urine Protein Urine Glucose (UA) Urine Ketones Urine Blood Urine Nitrate Urine Bilirubin Urine Urobilinogen Ur Leukocyte Esterase Urine RBC Urine WBC Ur Epithelial Cells Urine Bacteria Urine Opiates Screen Urine Methadone Screen Ur Barbiturates Screen Ur Tricyclics Screen Ur Phencyclidine Scrn Amphetamines Screen U Methamphetamines Scrn U Benzodiazepines Scrn U Cocaine Metab Screen U Cannabinoids Screen Ethyl Alcohol 309 H 04/29/18 04/29/18 04/29/18 10:49 10:49 10:49 WBC RBC Hgb Hct MCV MCH MCHC Differential RDW Plt Count MPV Add Manual Diff Band Neutrophils % Neutrophils (Manual) Lymphocytes Monocytes Eosinophils PT INR PTT (Actin FS) Sodium Potassium Chloride Carbon Dioxide Anion Gap BUN Creatinine Est GFR ( Amer) Est GFR (Non-Af Amer) BUN/Creatinine Ratio Glucose Whole Bld Lactic Acid Calcium Total Bilirubin AST ALT Alkaline Phosphatase Creatine Kinase Troponin I 0.01 B-Natriuretic Peptide < 5.0 L Total Protein Albumin Globulin Albumin/Globulin Ratio Triglycerides Cholesterol LDL Cholesterol Direct HDL Cholesterol Amylase Lipase Urine Source CLEAN C Urine Color YELLOW Urine Clarity CLEAR Urine pH 7.0 Ur Specific [place] <= 1.005 Urine Protein NEGATIVE Urine Glucose (UA) NEGATIVE Urine Ketones NEGATIVE Urine Blood TRACE Urine Nitrate NEGATIVE Urine Bilirubin NEGATIVE Urine Urobilinogen 0.2 Ur Leukocyte Esterase NEGATIVE Urine RBC 0-2 H Urine WBC 0-2 Ur Epithelial Cells NONE SEEN Urine Bacteria OCCASIONAL Urine Opiates Screen Urine Methadone Screen Ur Barbiturates Screen Ur Tricyclics Screen Ur Phencyclidine Scrn Amphetamines Screen U Methamphetamines Scrn U Benzodiazepines Scrn U Cocaine Metab Screen U Cannabinoids Screen Ethyl Alcohol 04/29/18 04/29/18 04/29/18 10:49 10:49 14:55 WBC RBC Hgb Hct MCV MCH MCHC Differential RDW Plt Count MPV Add Manual Diff Band Neutrophils % Neutrophils (Manual) Lymphocytes Monocytes Eosinophils PT INR PTT (Actin FS) Sodium Potassium Chloride Carbon Dioxide Anion Gap BUN Creatinine Est GFR ( Amer) Est GFR (Non-Af Amer) BUN/Creatinine Ratio Glucose Whole Bld Lactic Acid 3.00 H* 2.63 H* Calcium Total Bilirubin AST ALT Alkaline Phosphatase Creatine Kinase Troponin I B-Natriuretic Peptide Total Protein Albumin Globulin Albumin/Globulin Ratio Triglycerides Cholesterol LDL Cholesterol Direct HDL Cholesterol Amylase Lipase Urine Source Urine Color Urine Clarity Urine pH Ur Specific [place] Urine Protein Urine Glucose (UA) Urine Ketones Urine Blood Urine Nitrate Urine Bilirubin Urine Urobilinogen Ur Leukocyte Esterase Urine RBC Urine WBC Ur Epithelial Cells Urine Bacteria Urine Opiates Screen NEGATIVE Urine Methadone Screen NEGATIVE Ur Barbiturates Screen NEGATIVE Ur Tricyclics Screen NEGATIVE Ur Phencyclidine Scrn NEGATIVE Amphetamines Screen NEGATIVE U Methamphetamines Scrn NEGATIVE U Benzodiazepines Scrn POSITIVE H U Cocaine Metab Screen NEGATIVE U Cannabinoids Screen POSITIVE H Ethyl Alcohol - Assessment Assessment: Patient is awake, alert, requesting morphine and hydrocodone. In ER alcohol level was high and positive for marijuana. Dx Alcohol withdrawn, Drug addiction , cellulitis - Plan Plan: Patient is in IV NS, IV AB, IV Ativa, Tramadol and thiamine IM. Consult with GI requested. Will continue to monitor.
[2018-04-30] MEDS ORDERED: Thiamine 100 mg/mL 2mL Vial IM SCH (09:00)
[2018-04-30] MEDS: cefTRIAXone 1 GM in Sodium Chloride 0.9% 50 ML IV SCH (11:17)
[2018-04-30] MEDS: Nicotine 21 mg/24 hr Tdm TD SCH (16:28)
--- NOTE | 2018-04-30 16:39 | History & Physical ---
ADMIT DATE: 04/30/2018 REQUESTING PHYSICIAN: Dr. Jamil. REASON FOR CONSULTATION: Abdominal pain. Thank you for asking me to see this patient in consultation. HISTORY OF PRESENT ILLNESS: This is a 38-year-old male with remote history of alcoholism and chronic pancreatitis per patient with likely [id number] abdominal pain. The patient states that he has been having increased abdominal pain that has been unrelenting in nature and he feels as if there is a hole in his stomach. He also is giving a remote history of melena as well, although this history has been inconsistent with this patient. He is currently on medications for pain. He states that he was followed up at one of the hospitals in [place] area and has had some kind of endoscopic workup, although it is not clear whether he has had ERCPs in the past or EGDs in the past as well. He is a fairly poor historian. He states that he needs something for his pain control and that he has severe gastrointestinal disease that needs to be addressed. PAST MEDICAL HISTORY: Poor historian, likely chronic pancreatitis, likely pain medicine abuse. FAMILY HISTORY: Noncontributory for GI disease. SOCIAL HISTORY: Smokes 1 pack per day, heavy remote use of alcohol, cocaine and marijuana. He is currently potentially homeless. Medications have been reviewed. ALLERGIES: None known. REVIEW OF SYSTEMS: As in HPI. All other 12-point systems are negative. PHYSICAL EXAMINATION: VITAL SIGNS: Temperature is 99, pulse of 89, respiratory rate of 18, blood pressure is 124/88, pulse ox of 99%. GENERAL: He is in no acute distress. HEENT: Normocephalic, atraumatic. PERRLA, positive. LUNGS: Clear bilaterally. No wheezes, rales or rhonchi. ABDOMEN: Soft, nontender. Bowel sounds are positive. EXTREMITIES: Show no lower extremity edema. PSYCHOLOGICAL: NEUROLOGIC: Alert and oriented x 3. LABORATORY DATA: White count of 2.6, hemoglobin of 14.4, platelets of 162,000. IMAGING: No relevant imaging. ASSESSMENT AND PLAN: This is a 38-year-old male with history of likely chronic pancreatitis who presents with severe abdominal pain. 1. Acute intractable abdominal pain. 2. Probable history of chronic pancreatitis. 3. Tobacco abuse. 4. Intractable nausea and vomiting. 5. Question of melena. 6. History of drug abuse. We would recommend an EGD for further evaluation. Differentials include peptic ulcer disease, gastritis, and possibly related to sequelae from chronic pancreatitis. Further recommendations to follow after EGD. We would also recommend an abdominal ultrasound to take a look at his pancreas, especially to look for any signs of stricturing or abnormal pathology. I discussed with the patient that his cigarette smoking is likely feeding a recurrent process of pain with chronic pancreatitis. Thank you for this consultation. [facility]# [id number]
[2018-05-01] MEDS: Sodium Chloride 0.9% 1,000 ML IV SCH ×2 (02:52→10:00)
[2018-05-01 06:51] LABS: PROTHROMBIN TIME (TEST) 10.4 SECONDS (9.5-11.5)
[2018-05-01 06:52] LABS: HEMOGLOBIN 12.1 gm/dL (12-16); MEAN CELL VOLUME 104.6 fl (80-99); MEAN CORPUSCULAR HEMOGLOBIN 36.3 pg (26.0-30.0); MEAN CORPUSCULAR HGB CONC 34.7 pg (28.0-36.0); MEAN PLATELET VOLUME 7.4 fl; PLATELET COUNT 122 Th/cmm (150-400); RED BLOOD COUNT 3.35 Mil/cmm (4.30-5.70); RED CELL DISTRIBUTION WIDTH 14.1 % (11.5-20.0)
[2018-05-01 07:04] LABS: ALB/GLOB RATIO 1.3 (1.0-1.8); ALBUMIN 3.7 gm/dL (4.2-5.5); ALKALINE PHOSPHATASE 260 U/L (34-104); ANION GAP 13.3 (7.0-16.0); BUN - UREA NITROGEN 5 mg/dL (7-25); CALCIUM SERUM 8.6 mg/dL (8.6-10.3); CARBON DIOXIDE 21.1 mEq/L (21.0-31.0); CHLORIDE 104 mEq/L (98-107); CREATININE - SERUM 0.6 mg/dL (0.7-1.3); GFR AFRICAN-AMERICAN > 60.0 ml/min (>90); GFR NON AFRICAN-AMERICAN > 60.0 ml/min; GLUCOSE 77 mg/dL (70-105); POTASSIUM SERUM 3.4 mEq/L (3.5-5.1); SGOT 59 U/L (13-39); SGPT/ALT 27 U/L (7-52); SODIUM SERUM 135 mEq/L (136-145); TOTAL PROTEIN,SERUM 6.5 gm/dL (6.0-8.3)
[2018-05-01 07:07] LABS: WHITE BLOOD COUNT 2.6 Th/cmm (4.8-10.8)
[2018-05-01 07:16] LABS: BAND NEUTROPHILE 1 % (0-10); BASOPHIL 0 % (0-3); EOSINOPHIL 3 % (0-5); LYMPHOCYTE 43 % (20-50); MONOCYTE 10 % (2-10); NEUTROPHILS 43 % (40-80)
[2018-05-01] MEDS: Nicotine 21 mg/24 hr Tdm TD SCH (08:28)
--- NOTE | 2018-05-01 08:55 | General Progress Note ---
Subjective - Review of Systems Service Date: 05/01/18 Subjective: Zeeshan annalee ted Objective - Results Result Diagrams: 05/01/18 05:40 05/01/18 05:40 Recent Labs: Laboratory Last Values WBC 2.6 Th/cmm (4.8-10.8) L 05/01/18 05:40 RBC 3.35 Mil/cmm (4.30-5.70) L 05/01/18 05:40 Hgb 12.1 gm/dL (12-16) 05/01/18 05:40 Hct 35.0 % (41.0-60) L 05/01/18 05:40 MCV 104.6 fl (80-99) H 05/01/18 05:40 MCH 36.3 pg (26.0-30.0) H 05/01/18 05:40 MCHC Differential 34.7 pg (28.0-36.0) 05/01/18 05:40 RDW 14.1 % (11.5-20.0) 05/01/18 05:40 Plt Count 122 Th/cmm (150-400) L 05/01/18 05:40 MPV 7.4 fl 05/01/18 05:40 Add Manual Diff YES 05/01/18 05:40 Band Neutrophils % 1 % (0-10) 05/01/18 05:40 Neutrophils (Manual) 43 % (40-80) 05/01/18 05:40 Lymphocytes 43 % (20-50) 05/01/18 05:40 Monocytes 10 % (2-10) 05/01/18 05:40 Eosinophils 3 % (0-5) 05/01/18 05:40 Basophils 0 % (0-3) 05/01/18 05:40 PT 10.4 SECONDS (9.5-11.5) 05/01/18 05:40 INR 1.00 (0.5-1.4) 05/01/18 05:40 PTT (Actin FS) 24.3 SECONDS (26.0-38.0) L 04/29/18 10:49 Sodium 135 mEq/L (136-145) L 05/01/18 05:40 Potassium 3.4 mEq/L (3.5-5.1) L 05/01/18 05:40 Chloride 104 mEq/L (98-107) 05/01/18 05:40 Carbon Dioxide 21.1 mEq/L (21.0-31.0) 05/01/18 05:40 Anion Gap 13.3 (7.0-16.0) 05/01/18 05:40 BUN 5 mg/dL (7-25) L 05/01/18 05:40 Creatinine 0.6 mg/dL (0.7-1.3) L 05/01/18 05:40 Est GFR ( Amer) > 60.0 ml/min (>90) 05/01/18 05:40 Est GFR (Non-Af Amer) > 60.0 ml/min 05/01/18 05:40 BUN/Creatinine Ratio 8.3 05/01/18 05:40 Glucose 77 mg/dL (70-105) 05/01/18 05:40 Whole Bld Lactic Acid 2.63 mmol/L (0.60-1.99) H* 04/29/18 14:55 Calcium 8.6 mg/dL (8.6-10.3) 05/01/18 05:40 Total Bilirubin 1.0 mg/dL (0.3-1.0) 05/01/18 05:40 AST 59 U/L (13-39) H 05/01/18 05:40 ALT 27 U/L (7-52) 05/01/18 05:40 Alkaline Phosphatase 260 U/L (34-104) H 05/01/18 05:40 Creatine Kinase 185 U/L (30-223) 04/29/18 10:49 Troponin I 0.01 ng/mL (0.01-0.05) 04/29/18 10:49 B-Natriuretic Peptide < 5.0 pg/mL (5.0-100.0) L 04/29/18 10:49 Total Protein 6.5 gm/dL (6.0-8.3) 05/01/18 05:40 Albumin 3.7 gm/dL (4.2-5.5) L 05/01/18 05:40 Globulin 2.8 gm/dL 05/01/18 05:40 Albumin/Globulin Ratio 1.3 (1.0-1.8) 05/01/18 05:40 Triglycerides 225 mg/dL (<150) H 04/29/18 10:49 Cholesterol 319 mg/dL (<200) H 04/29/18 10:49 LDL Cholesterol Direct 113 mg/dL (75-193) 04/29/18 10:49 HDL Cholesterol 151 mg/dL (23-92) H 04/29/18 10:49 Amylase 94 U/L (29-103) 04/29/18 10:49 Lipase 85 U/L (11-82) H 04/29/18 10:49 Urine Source CLEAN C 04/29/18 10:49 Urine Color YELLOW 04/29/18 10:49 Urine Clarity CLEAR (CLEAR) 04/29/18 10:49 Urine pH 7.0 (4.6 - 8.0) 04/29/18 10:49 Ur Specific [place] <= 1.005 (1.005-1.030) 04/29/18 10:49 Urine Protein NEGATIVE mg/dL (NEGATIVE) 04/29/18 10:49 Urine Glucose (UA) NEGATIVE mg/dL (NEGATIVE) 04/29/18 10:49 Urine Ketones NEGATIVE mg/dL (NEGATIVE) 04/29/18 10:49 Urine Blood TRACE (NEGATIVE) 04/29/18 10:49 Urine Nitrate NEGATIVE (NEGATIVE) 04/29/18 10:49 Urine Bilirubin NEGATIVE (NEGATIVE) 04/29/18 10:49 Urine Urobilinogen 0.2 E.U./dL (0.2 - 1.0) 04/29/18 10:49 Ur Leukocyte Esterase NEGATIVE (NEGATIVE) 04/29/18 10:49 Urine RBC 0-2 /hpf (0-5) H 04/29/18 10:49 Urine WBC 0-2 /hpf (0-5) 04/29/18 10:49 Ur Epithelial Cells NONE SEEN /lpf (FEW) 04/29/18 10:49 Urine Bacteria OCCASIONAL /hpf (NONE SEEN) 04/29/18 10:49 Urine Opiates Screen NEGATIVE (NEGATIVE) 04/29/18 10:49 Urine Methadone Screen NEGATIVE (NEGATIVE) 04/29/18 10:49 Ur Barbiturates Screen NEGATIVE (NEGATIVE) 04/29/18 10:49 Ur Tricyclics Screen NEGATIVE (NEGATIVE) 04/29/18 10:49 Ur Phencyclidine Scrn NEGATIVE (NEGATIVE) 04/29/18 10:49 Amphetamines Screen NEGATIVE (NEGATIVE) 04/29/18 10:49 U Methamphetamines Scrn NEGATIVE (NEGATIVE) 04/29/18 10:49 U Benzodiazepines Scrn POSITIVE (NEGATIVE) H 04/29/18 10:49 U Cocaine Metab Screen NEGATIVE (NEGATIVE) 04/29/18 10:49 U Cannabinoids Screen POSITIVE (NEGATIVE) H 04/29/18 10:49 Ethyl Alcohol 309 mg/dL (0-10) H 04/29/18 10:49 - Physical Exam Vitals and I&O: Vital Signs Temp 98.7 F 05/01/18 08:23 Pulse 69 05/01/18 08:23 Resp 17 05/01/18 08:23 BP 130/86 05/01/18 08:23 Pulse Ox 98 05/01/18 08:23 Intake & Output 04/30/18 05/01/18 05/01/18 18:59 06:59 18:59 Intake Total 1951 988.167 Output Total 800 Balance 1151 988.167 Weight (lbs) 72.575 kg Intake: Intake, IV Amount 1151 988.167 Sodium Chloride 0.9% 1, 1000 988.167 000 ml @ 110 mls/hr IV . Q9H6M [facility] Rx#:[id number] Thiamine HCL 100 mg In 101 Dextrose 5% 100 ml @ 100 mls/hr IV Q24H [facility] Rx#: [id number] cefTRIAXone 1 gm In 50 Sodium Chloride 0.9% 50 ml @ 100 mls/hr IV Q24HR [facility] Rx#:[id number] Oral 800 Output: Urine 800 Other: # Bowel Movements 0 Weight Source Bedscale Active Medications: Current Medications Acetaminophen (Tylenol 650mg/20.3ml Suspension) 650 mg PO Q8HR PRN PRN Reason: T above 100F or Mild pain Stop: 06/28/18 16:32 Last Admin: 04/30/18 09:07 Dose: 650 mg Famotidine (Pepcid) 40 mg IVP DAILY [facility] Stop: 06/29/18 08:59 Last Admin: 05/01/18 08:30 Dose: 40 mg Ceftriaxone Sodium 1 gm/ (Sodium Chloride) 50 mls @ 100 mls/hr IV Q24HR [facility] Stop: 06/29/18 09:59 Last Infusion: 04/30/18 12:00 Dose: Infused Sodium Chloride (Nacl 0.9%) 1,000 mls @ 110 mls/hr IV .Q9H6M [facility] Stop: 06/28/18 16:32 Last Admin: 05/01/18 02:52 Dose: 110 mls/hr Thiamine HCl 100 mg/ Dextrose 101 mls @ 100 mls/hr IV Q24H [facility] Stop: 06/29/18 10:59 Last Infusion: 04/30/18 12:27 Dose: Infused Lorazepam (Ativan) 1 mg IVP Q6H PRN; Protocol PRN Reason: Alcohol Withdrawal Stop: 06/28/18 16:32 Last Admin: 05/01/18 08:43 Dose: 1 mg Mupirocin (Bactroban Oint) 1 appl NS BID [facility] Stop: 05/05/18 09:01 Last Admin: 05/01/18 08:33 Dose: 1 appl Nicotine (Nicotine Transdermal System) 21 mg TD DAILY [facility] Stop: 06/29/18 15:29 Last Admin: 05/01/18 08:28 Dose: 21 mg Ondansetron HCl (Zofran) 4 mg IV Q6H PRN PRN Reason: Nausea / Vomiting Stop: 06/29/18 15:28 Last Admin: 05/01/18 08:28 Dose: 4 mg Tramadol HCl (Ultram) 50 mg PO Q8H PRN PRN Reason: moderate pain Stop: 06/28/18 16:38 Last Admin: 04/30/18 22:22 Dose: 50 mg General: Alert, Oriented x3, No acute distress HEENT: Atraumatic Neck: Supple Cardiovascular: Regular rate Lungs: Clear to auscultation Abdomen: Bowel sounds, Soft Extremities: Other (No edema) Neurological: Normal gait Skin: Other (Warm and dry) Psych/Mental Status: Mental status NL Assessment/Plan - Assessment Assessment: Patient is awake, alert, requesting Librum, morphine and hydrocodone. In ER alcohol level was high and positive for marijuana. Dx Alcohol withdrawn, Drug addiction, cellulitis - Plan Plan: Patient is in IV NS, IV AB, IV Ativan, Tramadol and thiamine IM. Upper endoscopy will be done today. Will continue to monitor.
[2018-05-01] MEDS: cefTRIAXone 1 GM in Sodium Chloride 0.9% 50 ML IV SCH (10:00)
[2018-05-01] MEDS ORDERED: Probiotic Screen MC PRN (12:31)
--- NOTE | 2018-05-01 13:10 | GI Progress Note ---
Subjective - Review of Systems Service Date: 05/01/18 Events since last encounter: PATIENT INITIALLY AGREEING TO ENDOSCOPY BUT NOW REFUSING AND HAS REMOVED HIS IV Objective - Results Result Diagrams: 05/01/18 05:40 05/01/18 05:40 Recent Labs: Laboratory Last Values WBC 2.6 Th/cmm (4.8-10.8) L 05/01/18 05:40 RBC 3.35 Mil/cmm (4.30-5.70) L 05/01/18 05:40 Hgb 12.1 gm/dL (12-16) 05/01/18 05:40 Hct 35.0 % (41.0-60) L 05/01/18 05:40 MCV 104.6 fl (80-99) H 05/01/18 05:40 MCH 36.3 pg (26.0-30.0) H 05/01/18 05:40 MCHC Differential 34.7 pg (28.0-36.0) 05/01/18 05:40 RDW 14.1 % (11.5-20.0) 05/01/18 05:40 Plt Count 122 Th/cmm (150-400) L 05/01/18 05:40 MPV 7.4 fl 05/01/18 05:40 Add Manual Diff YES 05/01/18 05:40 Band Neutrophils % 1 % (0-10) 05/01/18 05:40 Neutrophils (Manual) 43 % (40-80) 05/01/18 05:40 Lymphocytes 43 % (20-50) 05/01/18 05:40 Monocytes 10 % (2-10) 05/01/18 05:40 Eosinophils 3 % (0-5) 05/01/18 05:40 Basophils 0 % (0-3) 05/01/18 05:40 PT 10.4 SECONDS (9.5-11.5) 05/01/18 05:40 INR 1.00 (0.5-1.4) 05/01/18 05:40 PTT (Actin FS) 24.3 SECONDS (26.0-38.0) L 04/29/18 10:49 Sodium 135 mEq/L (136-145) L 05/01/18 05:40 Potassium 3.4 mEq/L (3.5-5.1) L 05/01/18 05:40 Chloride 104 mEq/L (98-107) 05/01/18 05:40 Carbon Dioxide 21.1 mEq/L (21.0-31.0) 05/01/18 05:40 Anion Gap 13.3 (7.0-16.0) 05/01/18 05:40 BUN 5 mg/dL (7-25) L 05/01/18 05:40 Creatinine 0.6 mg/dL (0.7-1.3) L 05/01/18 05:40 Est GFR ( Amer) > 60.0 ml/min (>90) 05/01/18 05:40 Est GFR (Non-Af Amer) > 60.0 ml/min 05/01/18 05:40 BUN/Creatinine Ratio 8.3 05/01/18 05:40 Glucose 77 mg/dL (70-105) 05/01/18 05:40 Whole Bld Lactic Acid 2.63 mmol/L (0.60-1.99) H* 04/29/18 14:55 Calcium 8.6 mg/dL (8.6-10.3) 05/01/18 05:40 Total Bilirubin 1.0 mg/dL (0.3-1.0) 05/01/18 05:40 AST 59 U/L (13-39) H 05/01/18 05:40 ALT 27 U/L (7-52) 05/01/18 05:40 Alkaline Phosphatase 260 U/L (34-104) H 05/01/18 05:40 Creatine Kinase 185 U/L (30-223) 04/29/18 10:49 Troponin I 0.01 ng/mL (0.01-0.05) 04/29/18 10:49 B-Natriuretic Peptide < 5.0 pg/mL (5.0-100.0) L 04/29/18 10:49 Total Protein 6.5 gm/dL (6.0-8.3) 05/01/18 05:40 Albumin 3.7 gm/dL (4.2-5.5) L 05/01/18 05:40 Globulin 2.8 gm/dL 05/01/18 05:40 Albumin/Globulin Ratio 1.3 (1.0-1.8) 05/01/18 05:40 Triglycerides 225 mg/dL (<150) H 04/29/18 10:49 Cholesterol 319 mg/dL (<200) H 04/29/18 10:49 LDL Cholesterol Direct 113 mg/dL (75-193) 04/29/18 10:49 HDL Cholesterol 151 mg/dL (23-92) H 04/29/18 10:49 Amylase 94 U/L (29-103) 04/29/18 10:49 Lipase 85 U/L (11-82) H 04/29/18 10:49 Urine Source CLEAN C 04/29/18 10:49 Urine Color YELLOW 04/29/18 10:49 Urine Clarity CLEAR (CLEAR) 04/29/18 10:49 Urine pH 7.0 (4.6 - 8.0) 04/29/18 10:49 Ur Specific [place] <= 1.005 (1.005-1.030) 04/29/18 10:49 Urine Protein NEGATIVE mg/dL (NEGATIVE) 04/29/18 10:49 Urine Glucose (UA) NEGATIVE mg/dL (NEGATIVE) 04/29/18 10:49 Urine Ketones NEGATIVE mg/dL (NEGATIVE) 04/29/18 10:49 Urine Blood TRACE (NEGATIVE) 04/29/18 10:49 Urine Nitrate NEGATIVE (NEGATIVE) 04/29/18 10:49 Urine Bilirubin NEGATIVE (NEGATIVE) 04/29/18 10:49 Urine Urobilinogen 0.2 E.U./dL (0.2 - 1.0) 04/29/18 10:49 Ur Leukocyte Esterase NEGATIVE (NEGATIVE) 04/29/18 10:49 Urine RBC 0-2 /hpf (0-5) H 04/29/18 10:49 Urine WBC 0-2 /hpf (0-5) 04/29/18 10:49 Ur Epithelial Cells NONE SEEN /lpf (FEW) 04/29/18 10:49 Urine Bacteria OCCASIONAL /hpf (NONE SEEN) 04/29/18 10:49 Urine Opiates Screen NEGATIVE (NEGATIVE) 04/29/18 10:49 Urine Methadone Screen NEGATIVE (NEGATIVE) 04/29/18 10:49 Ur Barbiturates Screen NEGATIVE (NEGATIVE) 04/29/18 10:49 Ur Tricyclics Screen NEGATIVE (NEGATIVE) 04/29/18 10:49 Ur Phencyclidine Scrn NEGATIVE (NEGATIVE) 04/29/18 10:49 Amphetamines Screen NEGATIVE (NEGATIVE) 04/29/18 10:49 U Methamphetamines Scrn NEGATIVE (NEGATIVE) 04/29/18 10:49 U Benzodiazepines Scrn POSITIVE (NEGATIVE) H 04/29/18 10:49 U Cocaine Metab Screen NEGATIVE (NEGATIVE) 04/29/18 10:49 U Cannabinoids Screen POSITIVE (NEGATIVE) H 04/29/18 10:49 Ethyl Alcohol 309 mg/dL (0-10) H 04/29/18 10:49 - Physical Exam Vitals and I&O: Vital Signs Temp 98.7 F 05/01/18 08:23 Pulse 69 05/01/18 08:23 Resp 17 05/01/18 08:23 BP 130/86 05/01/18 08:23 Pulse Ox 98 05/01/18 08:23 Intake & Output 04/30/18 05/01/18 05/01/18 18:59 06:59 18:59 Intake Total 1951 988.167 Output Total 800 Balance 1151 988.167 Weight (lbs) 72.575 kg 72.575 kg Intake: Intake, IV Amount 1151 988.167 Sodium Chloride 0.9% 1, 1000 988.167 000 ml @ 110 mls/hr IV . Q9H6M [facility] Rx#:[id number] Thiamine HCL 100 mg In 101 Dextrose 5% 100 ml @ 100 mls/hr IV Q24H [facility] Rx#: [id number] cefTRIAXone 1 gm In 50 Sodium Chloride 0.9% 50 ml @ 100 mls/hr IV Q24HR [facility] Rx#:[id number] Oral 800 Output: Urine 800 Other: # Bowel Movements 0 Weight Source Bedscale Bedscale Active Medications: Current Medications Acetaminophen (Tylenol 650mg/20.3ml Suspension) 650 mg PO Q8HR PRN PRN Reason: T above 100F or Mild pain Stop: 06/28/18 16:32 Last Admin: 04/30/18 09:07 Dose: 650 mg Famotidine (Pepcid) 40 mg IVP DAILY [facility] Stop: 06/29/18 08:59 Last Admin: 05/01/18 08:30 Dose: 40 mg Ceftriaxone Sodium 1 gm/ (Sodium Chloride) 50 mls @ 100 mls/hr IV Q24HR [facility] Stop: 06/29/18 09:59 Last Admin: 05/01/18 10:00 Dose: Not Given Sodium Chloride (Nacl 0.9%) 1,000 mls @ 110 mls/hr IV .Q9H6M [facility] Stop: 06/28/18 16:32 Last Admin: 05/01/18 10:00 Dose: Not Given Thiamine HCl 100 mg/ Dextrose 101 mls @ 100 mls/hr IV Q24H [facility] Stop: 06/29/18 10:59 Last Infusion: 04/30/18 12:27 Dose: Infused Lorazepam (Ativan) 1 mg IVP Q6H PRN; Protocol PRN Reason: Alcohol Withdrawal Stop: 06/28/18 16:32 Last Admin: 05/01/18 08:43 Dose: 1 mg Miscellaneous (Probiotic Screen) 1 ea MC PRN PRN PRN Reason: PROTOCOL Stop: 06/30/18 12:30 Mupirocin (Bactroban Oint) 1 appl NS BID [facility] Stop: 05/05/18 09:01 Last Admin: 05/01/18 08:33 Dose: 1 appl Nicotine (Nicotine Transdermal System) 21 mg TD DAILY [facility] Stop: 06/29/18 15:29 Last Admin: 05/01/18 08:28 Dose: 21 mg Ondansetron HCl (Zofran) 4 mg IV Q6H PRN PRN Reason: Nausea / Vomiting Stop: 06/29/18 15:28 Last Admin: 05/01/18 08:28 Dose: 4 mg Tramadol HCl (Ultram) 50 mg PO Q8H PRN PRN Reason: moderate pain Stop: 06/28/18 16:38 Last Admin: 04/30/18 22:22 Dose: 50 mg General: Alert, Oriented x3, No acute distress HEENT: Atraumatic Neck: Supple Cardiovascular: Regular rate Lungs: Clear to auscultation Abdomen: Bowel sounds, Soft Extremities: Other (No edema) Neurological: Normal gait Skin: Other (Warm and dry) Psych/Mental Status: Mental status NL Assessment/Plan - Assessment Assessment: 1. ABDOMINAL PAIN 2. LIKELY CHRONIC PANCREATITIS 3. ALCOHOL AND TOBACCO ABUSE -RECOMMEND EGD BUT PATIENT IS REFUSING -ALCOHOL WITHDRAWAL PROTOCOL -STOP SMOKING, MAKING ABDOMINAL WORSE -NEEDS TO F/U WITH A PRIMARY DOCTOR -POOR INSIGHT TO HIS DISEASE
--- NOTE | 2018-05-01 15:35 | Discharge Summary ---
General Discharge Summary - Discharge Summary Date of Admission: 04/29/18 Admitting Diagnosis: Alcohol withdraw, Cellulitis, Drug addiction. Discharge Date: 05/01/18 Discharge Diagnosis: Alcoholwithdraw, Drug adiction, Cellulitis Laboratory Findings: Laboratory Results - last 24 hr 05/01/18 05/01/18 05/01/18 05:40 05:40 05:40 WBC 2.6 L RBC 3.35 L Hgb 12.1 Hct 35.0 L MCV 104.6 H MCH 36.3 H MCHC Differential 34.7 RDW 14.1 Plt Count 122 L MPV 7.4 Add Manual Diff YES Band Neutrophils % 1 Neutrophils (Manual) 43 Lymphocytes 43 Monocytes 10 Eosinophils 3 Basophils 0 PT 10.4 INR 1.00 Sodium 135 L Potassium 3.4 L Chloride 104 Carbon Dioxide 21.1 Anion Gap 13.3 BUN 5 L Creatinine 0.6 L Est GFR ( Amer) > 60.0 Est GFR (Non-Af Amer) > 60.0 BUN/Creatinine Ratio 8.3 Glucose 77 Calcium 8.6 Total Bilirubin 1.0 AST 59 H ALT 27 Alkaline Phosphatase 260 H Total Protein 6.5 Albumin 3.7 L Globulin 2.8 Albumin/Globulin Ratio 1.3 Hospital Course: Patient left AMA. Treatment: Patient was started in IV NS, IV AB, Thiamine, Ativan, Tramadol, Regular diet Condition at Discharge: Stable (Patient left AMA) Disposition: PT DISCHARGED HOME Home Medications: Home Medication Medication Instructions Recorded Type Gabapentin [Neurontin] 800 mg PO QID 04/05/18 History Hydrocodone/APAP 10 mg/325 mg 1 tab PO PRN PRN 04/05/18 History [[place] 10 mg/325 mg] Morphine Sulfate 15 mg PO PRN PRN 04/05/18 History Activity: As Tolerated Discharge Diet: Regular Consults and Follow-Up: CLAUDIA TYLER [Other] Popeye Jamil [Primary Care Provider] - Consulting Speciality: Other (PCP)
== END 2018-05-01 13:00 | disposition home or self-care (01) | DRG 720 ==
LOC: ER 09:42 → TELE 15:48
PROVIDERS: ADMIT General Practice; ATTEND General Practice
DX: A41.9 Sepsis, unspecified organism (principal); F11.20 Opioid dependence, uncomplicated; L03.116 Cellulitis of left lower limb; K86.1 Other chronic pancreatitis; K52.9 Noninfective gastroenteritis and colitis, unspecified; K92.2 Gastrointestinal hemorrhage, unspecified; Z53.21 Procedure and treatment not carried out due to patient leaving prior to being seen by health care provider; F17.210 Nicotine dependence, cigarettes, uncomplicated; Y90.8 Blood alcohol level of 240 mg/100 ml or more; Z90.49 Acquired absence of other specified parts of digestive tract; F10.129 Alcohol abuse with intoxication, unspecified; Z59.0 Homelessness
CPT/HCPCS: 36415-UA; 70450-TC; 71045-TC; 72125-TC; 80053-TC; 80061-TC; 80307; 80320-TC; 81001-TC; 82150-TC; 82550-TC; 83605; 83690-TC; 83880-TC; 84484-TC; 85007-TC; 85025-TC; 85610-TC; 85730-TC; 87086-90; 96375; 96376; C9113; J0696; J1885; J2060; J2405; J3411; J3475; J3490; J7030; X6598; Z7610